=== PATIENT | female | born 1950 | race Caucasian/White ===

== ENCOUNTER 2022-03-04 16:30 | Outpatient (REF) | payer BC, MEDICARE, SELFPAY | END 2022-03-04 16:31 | disposition home or self-care (01) | LOC: HO.LNP 16:30 | PROVIDERS: Visit Provider Nurse Practitioner Family | DX: R39.15 Urgency of urination (principal); B96.1 Klebsiella pneumoniae [K. pneumoniae] as the cause of diseases classified elsewhere; Z16.11 Resistance to penicillins | CPT/HCPCS: 87086; 87088; 87186 ==

== ENCOUNTER 2022-12-26 09:00 | Inpatient (IN) | payer MEDICARE, SELFPAY ==
[2022-12-26] VITALS (7 sets, daily range): BP systolic 124–154; BP diastolic 63–84; PULSE 70–103; RESP 16–18; TEMP 36.3–36.8; O2SAT 93–100; BMI 26.4; BMI 25.9
--- NOTE | ~2022-12-26 | CT_ITS ---
EXAMINATION: CT ABDOMEN AND PELVIS WITH CONTRAST CLINICAL INFORMATION: Left lower quadrant pain COMPARISON: None available. TECHNIQUE: Multidetector volumetric images were obtained from the superior aspect of the liver through the pubic symphysis following administration 85 mL of Omnipaque 350 intravenous contrast. Sagittal and coronal reformatted images were obtained on the technologist's workstation. Oral contrast: Yes This CT examination was performed using dose optimization techniques as appropriate, variously including the following: *Automated exposure control *Adjustment of mA and/or kV according to patient size (this includes techniques or standardized protocols for targeted exams where dose is matched to indication/reason for exam; i.e. extremities or head) *Use of iterative reconstruction technique DLP: 417 mGy-cm FINDINGS: LUNG BASES: The visualized lung bases are unremarkable. LIVER, GALLBLADDER, AND BILIARY TREE: The liver is normal in size, shape, and attenuation. No focal hepatic lesion or biliary ductal dilatation is present. The gallbladder is unremarkable with no evidence of radiopaque gallstones, gallbladder wall thickening, or obvious pericholecystic inflammatory changes. PANCREAS: Unremarkable. SPLEEN: Unremarkable. ADRENAL GLANDS: Unremarkable. KIDNEYS AND URETERS: The kidneys are normal in size, shape, and attenuation. No hydronephrosis, hydroureter, or calculi seen. No perinephric stranding. BLADDER: There may be some reactive wall thickening along the left superior lateral bladder wall. No abnormal air collection or contrast or a soft tissue mass in the bladder is seen. GASTROINTESTINAL TRACT: There is diverticulosis of the colon. There is wall thickening of the sigmoid colon. There is stranding of the surrounding fat. There are small fluid collections along the left lateral wall of the sigmoid colon questionable for intramural abscesses, extraluminal abscesses or small contained perforation. Largest area measures 2 cm axial image 57 series 2. This abuts the left adnexa. No evidence of obstruction. No free air. The small and large bowel is otherwise normal. The appendix is not seen. ABDOMINAL WALL: No significant hernia is appreciated. LYMPH NODES: Normal. VASCULAR: Unremarkable. PELVIC VISCERA: Small amount of fluid in the endometrial canal. Likely inflammatory left pelvic mass related to sigmoid diverticular disease in the left adnexa. Normal-appearing right adnexa. OSSEOUS STRUCTURES: Scoliosis and degenerative changes of the spine. CT/CT abdomen pelvis w IV con IMPRESSION: Sigmoid diverticulitis. Small fluid collections along the left lateral sigmoid colon inseparable from the left adnexa. It is uncertain whether this represents intramural abscesses or small extraluminal abscesses or contained perforations. Largest area measures 2 cm. No evidence of obstruction or free air. Small amount of fluid in the endometrial cavity. This could be better assessed with pelvic ultrasound if clinically indicated/history of vaginal bleeding. Fleischner guidelines were followed.
--- NOTE | 2022-12-26 09:19 | ED_ITS ---
HPI - Abdominal Pain General Chief Complaint: Abdominal Pain Stated Complaint: abd pain Time Seen by Provider: 12/26/22 09:14 Source: patient Mode of arrival: ambulatory Limitations: no limitations History of Present Illness HPI narrative: This is 72 years old female presented to the emergency department with chief complaint of left lower quadrant abdominal pain for about 2 weeks, she visited the urgent care he was placed on amoxicillin, she is on day 3 of amoxicillin. He denies any fever any vomiting MD elicited complaint: abdominal pain Pertinent past history: diverticulitis Onset (ago): week(s) (2) Pain Consistency: constant Location: LLQ Severity: moderate Quality: cramping Radiation: none Exacerbating factors: nothing Relieving factors: nothing Related Data Home Medications Medication Instructions Recorded Confirmed estradiol 0.01% (0.1 mg/gram) 1 g vaginal 2XW 03/04/22 vaginal cream Previous Rx's Medication Instructions Recorded nitrofurantoin macrocrystal 100 mg 100 mg PO BID 5 days #10 caps 03/04/22 capsule Allergies Allergy/AdvReac Type Severity Reaction Status Date / Time Sulfa (Sulfonamide AdvReac Rash Verified 03/04/22 13:27 Antibiotics) Review of Systems Review of Systems Yes all other systems are reviewed and are negative Constitutional: Reports no additional constitutional complaints Gastrointestinal: Reports abdominal pain PMFSH Past Medical History PMFSH Narrative: Diverticulitis Social History Social History Alcohol intake: current Alcohol intake frequency: 0-2 drinks per day Alcohol type: wine Patient Tobacco Use Status: Former Tobacco user Smoked in Last 30 Days: No Use of substances other than those prescribed or required for medical reasons: No Advance Directives: No Advance Directives Information Provided: Yes Physical Exam ED Vital Signs: Vital Signs - 24 hr 12/26/22 09:12 12/26/22 11:26 Temperature 97.9 F Pulse Rate 96 102 H Respiratory Rate 18 18 Blood Pressure 154/79 H 139/81 Pulse Oximetry 100 99 Oxygen Delivery Method Room Air BMI result Body Mass Index 26.4 Const General: cooperative Nutritional Appearance: well nourished Orientation/consciousness: patient oriented x3 Limitations: no limitations HENMT Head: Yes normal to inspection Ears: hearing grossly normal bilaterally General nose exam: Normal external nose present Face and sinus: Yes normal facial exam Mouth: Normal oral and palatal mucosa present Eyes General: appearance normal, both eyes and all related structures EOM: EOMs intact bilaterally Neck Neck: Yes normal visual inspection Chest Chest palpation & inspection: normal inspection of the chest Resp Effort & Inspection: normal respiratory effort Cardio Jugular venous distension: no JVD Rate: regular rate Rhythm: regular rhythm GI Inspection: Yes normal to inspection Palpation (GI): Soft to palpation and Tenderness to palpation present (GI) (Left lower quadrant tenderness) in the LLQ Auscultation: normal bowel sounds Skin General skin exam: no rashes or lesions noted, elasticity normal and turgor normal Neuro General: patient oriented x3 Course Reevaluation(s) Reevaluation #1: CT reviewed question abscess I discussed the case with Dr. Guevara he will see the patient in the emergency department Time: 11:15 Reevaluation #2: seen by Dr Guevara Time: 11:26 Medical Decision Making Medical Decision Making [facility] Narrative: Patient presented with abdominal pain left lower quadrant he is on day 3 of antibiotic for presumed diverticulitis, this point will get a CT scan of the abdomen and pelvis and reassess Differential Diagnosis Differential Diagnoses: The differential diagnosis associated with the presentation includes Perforated diverticulitis/abscess/uncomplicated diverticulitis Admission/Observation Consideration of admission/observation: Escalation of care including admission/observation considered Consult Healthcare Provider Management of the patient was discussed with: Canvassing Manager Ismael Lab Data [facility] Lab Attestation statement: I reviewed the patient's lab results. 12/26/22 09:34 12/26/22 09:34 Labs: Lab Results 12/26/22 12/26/22 Range/Units 09:34 09:34 WBC 12.3 H (4.8-10.8) X10*3/uL RBC 3.64 L (4.20-5.50) X10*6/uL Hgb 12.1 (12.0-16.0) g/dl Hct 35.4 L (37.0-47.0) % MCV 97.3 (80.0-98.0) fL MCH 33.2 H (27.0-33.0) pg MCHC 34.2 (31.0-35.0) g/dl RDW 12.6 (11.0-16.0) % Plt Count 256 (160-400) X10*3/uL MPV 8.9 L (9.4-12.3) fL Immature Gran % (Auto) 0.8 H (0.0-0.4) % Neut % (Auto) 82.8 H (45-73) % Lymph % (Auto) 7.6 L (20-40) % [place] % (Auto) 8.0 (2-11) % Eos % (Auto) 0.6 (0-4) % Baso % (Auto) 0.2 (0-2) % Lymph # (Auto) 0.9 L (1.2-4.9) X10*3/uL [place] # (Auto) 1.0 (0.1-1.2) X10*3/uL Eos # (Auto) 0.1 (0.0-0.4) X10*3/uL Baso # (Auto) 0.0 (0.0-0.2) X10*3/uL Abs Immat Gran (auto) 0.10 H (0.00-0.03) X10*3/uL Absolute Neuts (auto) 10.2 H (2.0-8.3) x10*3/uL Absolute Nucleated RBC 0.000 (0.0-0.012) X10*3/uL Nucleated RBC % (auto) 0.0 (0.0-0.2) /100WBC Sodium 133 L (135-145) mmol/L Potassium 4.5 (3.3-5.1) mmol/L Chloride 102 (96-108) mmol/L Carbon Dioxide 25 (22-29) mmol/L Anion Gap 11 L (12-20) BUN 6 L (9-16) mg/dL Creatinine 0.63 (0.5-1.4) mg/dL Estim Creat Clear Calc 69.9 Estimated GFR > 60 Random Glucose 116 H (60-115) mg/dL Calcium 9.7 (8.4-10.2) mg/dL Total Bilirubin 1.3 H (0.0-1.0) mg/dL AST 54 H (5-31) U/L ALT 49 H (0-31) U/L Alkaline Phosphatase 156 H (39-117) U/L Total Protein 7.1 (6.5-8.0) g/dL Albumin 3.9 (3.5-5.0) g/dL Lipase 25 (8-78) U/L Independent Interpretation I performed an independent interpretation of an: CT Scan Interpretation: I reviewed personally the CT agree with the radiology reading Radiology Impression Discussion of test interpretation with radiology: I have reviewed the radiologist's reading. Independent Historian Clinical information obtained from an independent historian. History obtained from or confirmed by: Other (Daughter) Prescription Management I considered prescription management with: Pain Medication Medications Administered Generic Name Dose Route Start Last Admin Trade Name Freq PRN Reason Stop Dose Admin Piperacillin Sod/Tazobactam 50 mls @ 100 mls/hr 12/26/22 11:12 12/26/22 11:28 Sod 3.375 gm/ Sodium Chloride IV 12/26/22 11:41 100 mls/hr ONCE ONE Administration Discontinued Medications Generic Name Dose Route Start Last Admin Trade Name Freq PRN Reason Stop Dose Admin Iohexol 85 ml 12/26/22 10:31 12/26/22 10:32 Iohexol 350 Mg/Ml 75 Ml Infus..Btl IV 12/26/22 10:32 85 ml ONCE ONE Administration Discharge Plan Discharge Clinical Impression: Diverticulitis of large intestine with complication Patient Disposition: Admitted As Inpatient
[2022-12-26 09:39] LABS: MANUAL DIFF FLAG NO
[2022-12-26 09:40] LABS: Basophils Percent Auto 0.2 % (0-2); Eosinophils Absolute Auto 0.1 X10*3/uL (0.0-0.4); Eosinophils Percent Auto 0.6 % (0-4); Hematocrit 35.4 % (37.0-47.0); Hemoglobin 12.1 g/dl (12.0-16.0); Imm Gran Pct Auto 0.8 % (0.0-0.4); Lymphocytes Absolute Auto 0.9 X10*3/uL (1.2-4.9); Lymphocytes Percent Auto 7.6 % (20-40); Mean Corpuscular HGB Conc 34.2 g/dl (31.0-35.0); Mean Corpuscular Hemoglobin 33.2 pg (27.0-33.0); Mean Corpuscular Volume 97.3 fL (80.0-98.0); Mean Platelet Volume 8.9 fL (9.4-12.3); Neutrophils Absolute Auto 10.2 x10*3/uL (2.0-8.3); Neutrophils Percent Auto 82.8 % (45-73); Platelet Count 256 X10*3/uL (160-400); Red Blood Count 3.64 X10*6/uL (4.20-5.50); Red Cell Distribution Width 12.6 % (11.0-16.0); White Blood Count 12.3 X10*3/uL (4.8-10.8)
[2022-12-26 09:58] LABS: Alanine Aminotransferase 49 U/L (0-31); Albumin Level 3.9 g/dL (3.5-5.0); Alkaline Phosphatase 156 U/L (39-117); Anion Gap 11 (12-20); Aspartate Amino Transferase 54 U/L (5-31); Bilirubin Total 1.3 mg/dL (0.0-1.0); Blood Urea Nitrogen 6 mg/dL (9-16); Calcium 9.7 mg/dL (8.4-10.2); Carbon Dioxide 25 mmol/L (22-29); Chloride 102 mmol/L (96-108); Creatinine Clr Calc Pharmacy 69.9; Estimated Glomerular Filt Rate > 60; Glucose Random 116 mg/dL (60-115); Lipase 25 U/L (8-78); Potassium 4.5 mmol/L (3.3-5.1); Sodium 133 mmol/L (135-145); Total Protein 7.1 g/dL (6.5-8.0)
[2022-12-26] MEDS: iohexoL 350 MG/ML 75 ML INFUS..BTL 85 ML IV (10:32)
--- NOTE | 2022-12-26 11:19 | PC.NURSE ---
per MD Sheldon - no need for blood cultures to be drawn prior to ABX administration
[2022-12-26] MEDS: Piperacillin Sodium/Tazobactam 3.375 GM in 0.9 % Sodium Chloride 50 ML IV ×3 (11:28→22:47)
--- NOTE | 2022-12-26 11:34 | PM.HPGS ---
History of Present Illness History of Present Illness Date of Service: 12/30/22 Chief complaint: Acute diverticulitis Narrative: Serenity Hastings is a 72 year old female here in the ED for abdominal pain. She says she went to the urgent care 3 days ago for abdominal pain, mostly left-sided. She says she is aware that she has diverticulosis from previous colonoscopies. She therefore told the urgent care that her pain was secondary to her lower disease. She was started on amoxicillin. She says that she did not feel that she had improved significantly so she decided to come to the ER this morning. She says that the pain not severe but she felt that this should have been better by now after being on oral antibiotics. She denies any fever or chills. She has good bowel movements. Has passage of flatus She denies any nausea or vomiting She says that she has never been admitted for diverticulitis in the past. Her daughter says that she drinks alcoholl every day. The patient says that she has not had any alcohol intake for 3 days. Review of Systems Constitutional: Constitutional: Denies chills and Denies fever(s) Cardiovascular: Cardiovascular: Denies chest pain, Denies dyspnea and Denies dyspnea on exertion Respiratory: Respiratory: Denies cough, Denies dyspnea and Denies dyspnea on exertion Gastrointestinal: Gastrointestinal: Denies hematochezia and Denies change in bowel habits Genitourinary: Genitourinary: Denies hematuria Musculoskeletal: Musculoskeletal: Denies back pain and Denies limited range of motion Neurologic: Denies focal weakness and Denies convulsions Psychiatric: Psychiatric: Denies depression and Denies mood swings PMFSH Past Medical History Medical History Daily consumption of alcohol Surgical History Surgical History (Updated 12/26/22 @ 13:40 by Heather Escobar NP) H/O neck surgery History of appendectomy Social History Social History (Updated 12/26/22 @ 13:40 by Heather Escobar NP) Household Members: Family Housing: House Do you presently have visiting nurse or other home services: No Alcohol intake: current Alcohol intake frequency: 3 or more drinks per day Alcohol type: wine Patient Tobacco Use Status: Never used Tobacco Smoked in Last 30 Days: No Use of substances other than those prescribed or required for medical reasons: No Currently Displaying Signs/Symptoms of Drug Intoxication Withdrawal: No Have you been hit, kicked, punched, or otherwise hurt by someone within the past year? If so, by whom?: No Do you feel safe in your current relationship?: Yes Is there a partner from a previous relationship who is making you feel unsafe now?: No Are you made to feel afraid or neglected: No Advance Directives: No Advance Directives Information Provided: Yes Do you have thoughts of harming others: None Do you have a plan to hurt others: No Plan Recently lost weight without trying: Yes How much weight loss: 2-13 pounds Eating poorly because of decreased appetite: Yes Nutrition screen score: 4 Nutrition Risks: No Nutritional Risk Patient : No : No Poor oral hygiene: No service: No Meds Allergies Allergy/AdvReac Type Severity Reaction Status Date / Time Sulfa (Sulfonamide AdvReac Rash Verified 03/04/22 13:27 Antibiotics) Active Medications: Current Medications Piperacillin Sod/Tazobactam (Sod 3.375 gm/ Sodium Chloride) 50 mls @ 100 mls/hr IV ONCE ONE Stop: 12/26/22 11:41 Last Admin: 12/26/22 11:28 Dose: 100 mls/hr Home Medications Medication Instructions Recorded Confirmed Last Taken Type estradiol 0.01% (0.1 mg/gram) 1 g vaginal 2XW 03/04/22 12/26/22 12/25/22 History vaginal cream amoxicillin 875 mg-potassium 1 tab PO Q12H 12/26/22 12/26/22 12/25/22 22:00 History clavulanate 125 mg tablet calcium carbonate 500 mg calcium 500 mg PO BID 12/26/22 12/26/22 Unknown History (1,250 mg) tablet ibuprofen 400 mg tablet 400 mg PO Q8H PRN Pain 12/26/22 12/26/22 Unknown History vitamins A,C,[id number]-wyje-wvvznv 2,148 1 tab PO BID 12/26/22 12/26/22 Unknown History mcg-113 mg-45 mg-17.4 mg tablet (PreserVision AREDS) Physical Exam Vital Signs: Vital Signs: Last Vital Signs Temp 97.9 F 12/26/22 09:12 Pulse 102 H 12/26/22 11:26 Resp 18 12/26/22 11:26 BP 139/81 12/26/22 11:26 Pulse Ox 99 12/26/22 11:26 O2 Del Method Room Air 07/22/23 09:12 BMI result Body Mass Index 26.4 Const: General: comfortable and no acute distress Orientation/consciousness: patient oriented x3 Neck: Neck: Yes no lymphadenopathy Resp: Auscultation: clear to auscultation bilaterally Cardio: Rhythm: regular rhythm GI: Other: mild tenderness on the left lower quadrant with no rebound or guarding no palpable mass Palpation (GI): Soft to palpation, Tenderness to palpation present (GI) and no guarding Neuro: General: patient oriented x3 Results Results Labs: Short CBC 12/26/22 Range/Units 09:34 WBC 12.3 H (4.8-10.8) X10*3/uL Hgb 12.1 (12.0-16.0) g/dl Hct 35.4 L (37.0-47.0) % Plt Count 256 (160-400) X10*3/uL BMP 12/26/22 09:34 Sodium 133 L Potassium 4.5 Chloride 102 Carbon Dioxide 25 BUN 6 L Creatinine 0.63 Calcium 9.7 Liver Function 12/26/22 Range/Units 09:34 Total Bilirubin 1.3 H (0.0-1.0) mg/dL AST 54 H (5-31) U/L ALT 49 H (0-31) U/L Alkaline Phosphatase 156 H (39-117) U/L Albumin 3.9 (3.5-5.0) g/dL Laboratory Results WBC 12.3 X10*3/uL (4.8-10.8) H 12/26/22 09:34 RBC 3.64 X10*6/uL (4.20-5.50) L 12/26/22 09:34 Hgb 12.1 g/dl (12.0-16.0) 12/26/22 09:34 Hct 35.4 % (37.0-47.0) L 12/26/22 09:34 MCV 97.3 fL (80.0-98.0) 12/26/22 09:34 MCH 33.2 pg (27.0-33.0) H 12/26/22 09:34 MCHC 34.2 g/dl (31.0-35.0) 12/26/22 09:34 RDW 12.6 % (11.0-16.0) 12/26/22 09:34 Plt Count 256 X10*3/uL (160-400) 12/26/22 09:34 MPV 8.9 fL (9.4-12.3) L 12/26/22 09:34 Immature Gran % (Auto) 0.8 % (0.0-0.4) H 12/26/22 09:34 Neut % (Auto) 82.8 % (45-73) H 12/26/22 09:34 Lymph % (Auto) 7.6 % (20-40) L 12/26/22 09:34 [place] % (Auto) 8.0 % (2-11) 12/26/22 09:34 Eos % (Auto) 0.6 % (0-4) 12/26/22 09:34 Baso % (Auto) 0.2 % (0-2) 12/26/22 09:34 Lymph # (Auto) 0.9 X10*3/uL (1.2-4.9) L 12/26/22 09:34 [place] # (Auto) 1.0 X10*3/uL (0.1-1.2) 12/26/22 09:34 Eos # (Auto) 0.1 X10*3/uL (0.0-0.4) 12/26/22 09:34 Baso # (Auto) 0.0 X10*3/uL (0.0-0.2) 12/26/22 09:34 Abs Immat Gran (auto) 0.10 X10*3/uL (0.00-0.03) H 12/26/22 09:34 Absolute Neuts (auto) 10.2 x10*3/uL (2.0-8.3) H 12/26/22 09:34 Absolute Nucleated RBC 0.000 X10*3/uL (0.0-0.012) 12/26/22 09:34 Nucleated RBC % (auto) 0.0 /100WBC (0.0-0.2) 12/26/22 09:34 Sodium 133 mmol/L (135-145) L 12/26/22 09:34 Potassium 4.5 mmol/L (3.3-5.1) 12/26/22 09:34 Chloride 102 mmol/L (96-108) 12/26/22 09:34 Carbon Dioxide 25 mmol/L (22-29) 12/26/22 09:34 Anion Gap 11 (12-20) L 12/26/22 09:34 BUN 6 mg/dL (9-16) L 12/26/22 09:34 Creatinine 0.63 mg/dL (0.5-1.4) 12/26/22 09:34 Estim Creat Clear Calc 69.9 12/26/22 09:34 Estimated GFR > 60 12/26/22 09:34 Random Glucose 116 mg/dL (60-115) H 12/26/22 09:34 Calcium 9.7 mg/dL (8.4-10.2) 12/26/22 09:34 Total Bilirubin 1.3 mg/dL (0.0-1.0) H 12/26/22 09:34 AST 54 U/L (5-31) H 12/26/22 09:34 ALT 49 U/L (0-31) H 12/26/22 09:34 Alkaline Phosphatase 156 U/L (39-117) H 12/26/22 09:34 Total Protein 7.1 g/dL (6.5-8.0) 12/26/22 09:34 Albumin 3.9 g/dL (3.5-5.0) 12/26/22 09:34 Lipase 25 U/L (8-78) 12/26/22 09:34 Impressions Abdomen/Pelvis CT 12/26/22 10:32 IMPRESSION: Sigmoid diverticulitis. Small fluid collections along the left lateral sigmoid colon inseparable from the left adnexa. It is uncertain whether this represents intramural abscesses or small extraluminal abscesses or contained perforations. Largest area measures 2 cm. No evidence of obstruction or free air. Small amount of fluid in the endometrial cavity. This could be better assessed with pelvic ultrasound if clinically indicated/history of vaginal bleeding. Fleischner guidelines were followed. Assessment and Plan (1) Diverticulitis of large intestine with complication: Status: Acute She has left lower quadrant pain and tenderness. I have reviewed her CAT scan and this shows changes in the sigmoid consistent with acute diverticulitis. There is suggestion of small intramural or extraluminal abscesses. There is no evidence of any free air. She has a very benign exam. She has had no fever. She looks well overall although does have some anxiety. She will be admitted for IV antibiotics. She does not appear that she will benefit from CT drainage at this time. I did explain to her that if she has clinical worsening, may benefit from sigmoid resection and a possible stoma. This seems to be unlikely at this time. I explained to her and her daughter what to expect for now. This seemed to understand the plan Her daughter is concerned about daily alcohol intake with wine, and she anticipates anxiety. I will consult the hospitalist service although at this time it does not appear that she has withdrawal symptoms. Time Spent With Patient Time: Total time managing care of this patient today ____ minutes. Quality Stroke Does the patient have a stroke diagnosis?: No VTE Prior VTE?: No VTE Risk Level:: Medical - moderate - high VTE Device Contraindication: N/A - Device Ordered VTE Drug Contraindication: N/A - Med Ordered Procedures Date of Service Date of Service: 12/30/22
[2022-12-26 11:51] LABS: Appearance Urine Clear; Color Urine Yellow; Glucose Urine UA Negative (Negative); Leukocyte Esterase Urine Negative (Negative); Nitrite Urine Negative (Negative); Specific Gravity - Urine >= 1.030 (1.005-1.025); Urine Blood Negative (Negative); Urine Ketones Negative (Negative); Urine Protein Negative (Neg-Trace)
--- OUTSIDE RECORDS SUMMARY | 2022-12-26 12:03 | XMS_ITS | Continuity of Care Document ---
Author Name Unknown Organization [facility] Address [address], [address] [place] [address]- Care Team Providers Care Angle Bender Name Role Phone Ashley Boone MD Primary Care Physician Encounter 09/02/22 - 09/09/22 [facility] [address], [address] [place] [address]- Attending Physician: sAhley Boone MD Admitting Physician: Ashley Boone MD Referring Physician: Ashley Boone MD Allergies, Adverse Reactions, Alerts Substance Reaction Severity Status sulfADIAZINE rash Active sulfa drugs Active Immunizations Given and Recorded Vaccine Date Status Refusal Reason tetanus/diphtheria/pertussis, acel(Tdap) 08/28/22 Given tetanus/diphtheria/pertussis, acel(Tdap) 1 10/22/11 Given influenza virus vaccine, inactivated 03/31/22 Salvador rded influenza virus vaccine, inactivated 03/24/21 Give n influenza virus vaccine, inactivated 03/13/19 Salvador rded influenza virus vaccine, inactivated 06/10/18 Give n influenza virus vaccine, inactivated 2 04/14/17 Gi robert influenza virus vaccine, inactivated 04/06/16 Salvador rded influenza virus vaccine, inactivated 3 07/06/13 Gi robert SARS-CoV-2 (COVID-19) mRNA-1273 vaccine 06/03/21 R ecorded SARS-CoV-2 (COVID-19) mRNA-1273 vaccine 09/28/20 R ecorded SARS-CoV-2 (COVID-19) mRNA-1273 vaccine 08/31/20 R ecorded Influenza Virus Vaccine (oldterm) 03/13/20 Recorde d pneumococcal 23-valent vaccine 08/08/18 Given pneumococcal 13-valent vaccine 07/20/16 Given Influenza Vaccine (oldterm) 4 03/05/15 Recorded Fluzone (oldterm) 2/5/15 Given FluLaval (oldterm) 5 06/03/12 Given Zostavax (oldterm) 07/06/11 Recorded Tetanus Toxoid Vaccine (oldterm) 06/28/00 Given 1Admin Note: VIS...06/30/2011 2Result Comment: [04/14/2017] [id number] 3Result Comment: [07/06/2013] Ordered by Dr. Ashley Boone [facility] 5Admin Note: VIS given dated 12/07/11 Medications Caltrate 600 + D oral tablet 1 tablet, By Mouth, 2 times a day, # 60 tablet, 0 Refills, Maintenance, 08/14/19 11:16:00 EDT, Tablet Start Date: 08/14/19 Status: Ordered estradiol 0.1 mg/g vaginal cream 0 Refills, Maintenance, 08/25/21 14:05:00 EDT, Partial fill upon patient request if the prescription is for a schedule II opioid drug. 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 Confirmed Active Hypertension Confirmed Active Neck pain Confirmed Active Osteopenia 2 Confirmed 08/19/18 Active Skin lesion Confirmed Active 1possible fatty liver, lab w/u prevously negative 2Left hip Results Radiology Reports * Exam Date Time Procedure Performing Provider Status 09/02/22 10:49 AM Dexa Bone Density (Axial) Joseph Mckeon; Auth (Verified) Notes: (Dexa Bone Density (Axial)) Reason For Exam: Osteopenia;Screening for Osteoporosis RESULT: DEXA BONE DENSITY (AXIAL) Bone Density Report Name: JALYN SHIELDS Age: 72 Sex: Female Ethnicity: White Date of : 1950 Indication: POSTMENOPAUSAL. Referring Provider: ASHLEY BOONE Study: Bone densitometry was performed. Exam Date: September 02, 2022 Accession number: [id number] Bone Density: Region BMD T-score Z-score Classification AP Spine(L1, L2, L3) 1.084 0.6 2.7 Normal Femoral Neck (Left) 0.700 -1.3 0.5 Osteopenia Total Hip (Left) 0.784 -1.3 0.3 Osteopenia Total Forearm (Left) 0.590 0.2 2.3 1/3 Forearm (Left) 0.675 -0.3 1.9 Normal UD Forearm (Left) 0.444 0.0 1.6 World Health Organization criteria for BMD impression classify patients as: Normal (T-score at or above -1.0), Osteopenia (T-score between -1.0 and -2.5), or Osteoporosis (T-score at or below -2.5). 10-year Fracture Risk(1): Major Osteoporotic Fracture 19% Hip Fracture 5.4% Reported Risk Factors: [place] (), Neck BMD=0.700, BMI=26.8, parental fracture, alcohol use (1) FRAX(R) Version 3.00. Fracture probability calculated for an untreated patient. Fracture probability may be lower if the patient has received treatment. Previous Exams: Region Exam Age BMD T-score BMD Change BMD Change Date g/cm2 vs Baseline vs Previous AP Spine(L1, L2, L3) 09/02/2022 72 1.084 0.6 4.4%* 4.2%* 08/29/2020 70 1.041 0.2 0.2% 0.2% 08/09/2014 64 1.039 0.2 0.1% 0.1% 11/14/2009 59 1.038 0.2 Total Hip(Left) 09/02/2022 72 0.784 -1.3 -14.6%* -6.3%* 08/29/2020 70 0.837 -0.9 -8.9%* -9.8%* 08/09/2014 64 0.927 -0.1 1.0% 1.0% 11/14/2009 59 0.918 -0.2 Femoral Neck(Left) 09/02/2022 72 0.700 -1.3 -5.3%* 0.4% 08/29/2020 70 0.697 -1.4 -5.7%* -7.2%* 08/09/2014 64 0.752 -0.9 1.6% 1.6% 11/14/2009 59 0.739 -1.0 1/3 Forearm(Left) 09/02/2022 72 0.675 -0.3 5.4%* 5.4%* 08/29/2020 70 0.641 -0.9 *Denotes significance at 95% confidence level, LSC for AP Spine = 0.022 g/cm2, LSC for Total Hip = 0.027 g/cm2 Clinical Information Provided by Patient: Parent has had a hip fracture Has 3 or more alcoholic drinks per day Has used the following medications: Vitamin D, Calcium Patient maximum height was 61.5 Menopause Age: 49 Onset of menses at age 15 Number of children 1 Impression: The patient has osteopenia as determined by WHO criteria. Reported by: Narenrda Blackburn M.D. on 09/03/2022 3:58:00 PM. Dictated By: Narendra Blackburn MD Dictated Date/Time: 09/03/22 3:59 pm Reviewed By: Narendra Blackburn MD Signed By: Narendra Blackburn MD Signed Date/Time: 09/03/22 3:59 pm Transcribed By: ELIAS Transcribed Date/Time: 09/03/22 3:59 pm Social History Social History Type Response Smoking Status Former smoker; Type: Cigarettes; Started at age: 21; Stopped at age: 34; entered on: 07/12/14 Sex DXA Skeletal system.axial Views for bone density * [facility]SPowerscribe , CIS S: TRANSCRIBE BHSPowerscribe , CIS S: TRANSCRIBE, VERIFY Narendra Blackburn MD: VERIFY, VERIFY Narendra Blackburn MD: VERIFY Event Display: Result: Authored Date: [id number] Bone Density Report Name: JALYN SHIELDS Age: 72 Sex: Female Ethnicity: White Date of : 1950 Indication: POSTMENOPAUSAL. Referring Provider: ASHLEY BOONE Study: Bone densitometry was performed. Exam Date: September 02, 2022 Accession number: [id number] Bone Density: Region BMD T-score Z-score Classification AP Spine(L1, L2, L3) 1.084 0.6 2.7 Normal Femoral Neck (Left) 0.700 -1.3 0.5 Osteopenia Total Hip (Left) 0.784 -1.3 0.3 Osteopenia Total Forearm (Left) 0.590 0.2 2.3 1/3 Forearm (Left) 0.675 -0.3 1.9 Normal UD Forearm (Left) 0.444 0.0 1.6 World Health Organization criteria for BMD impression classify patients as: Normal (T-score at or above -1.0), Osteopenia (T-score between -1.0 and -2.5), or Osteoporosis (T-score at or below -2.5). 10-year Fracture Risk(1): Major Osteoporotic Fracture 19% Hip Fracture 5.4% Reported Risk Factors: [place] (), Neck BMD=0.700, BMI=26.8, parental fracture, alcohol use (1) FRAX(R) Version 3.00. Fracture probability calculated for an untreated patient. Fracture probability may be lower if the patient has received treatment. Previous Exams: Region Exam Age BMD T-score BMD Change BMD Change Date g/cm2 vs Baseline vs Previous AP Spine(L1, L2, L3) 09/02/2022 72 1.084 0.6 4.4%* 4.2%* 08/29/2020 70 1.041 0.2 0.2% 0.2% 08/09/2014 64 1.039 0.2 0.1% 0.1% 11/14/2009 59 1.038 0.2 Total Hip(Left) 09/02/2022 72 0.784 -1.3 -14.6%* -6.3%* 08/29/2020 70 0.837 -0.9 -8.9%* -9.8%* 08/09/2014 64 0.927 -0.1 1.0% 1.0% 11/14/2009 59 0.918 -0.2 Femoral Neck(Left) 09/02/2022 72 0.700 -1.3 -5.3%* 0.4% 08/29/2020 70 0.697 -1.4 -5.7%* -7.2%* 08/09/2014 64 0.752 -0.9 1.6% 1.6% 11/14/2009 59 0.739 -1.0 06/09 Forearm(Left) 09/02/2022 72 0.675 -0.3 5.4%* 5.4%* 08/29/2020 70 0.641 -0.9 *Denotes significance at 95% confidence level, LSC for AP Spine = 0.022 g/cm2, LSC for Total Hip = 0.027 g/cm2 Clinical Information Provided by Patient: Parent has had a hip fracture Has 3 or more alcoholic drinks per day Has used the following medications: Vitamin D, Calcium Patient maximum height was 61.5 Menopause Age: 49 Onset of menses at age 15 Number of children 1 Impression: The patient has osteopenia as determined by WHO criteria. Reported by: Narendra Blackburn M.D. on 09/03/2022 3:58:00 PM. Dictated By: Narendra Blackburn MD Dictated Date/Time: 09/03/22 3:59 pm Reviewed By: Narnedra Blackburn MD Signed By: Narendra Blackburn MD Signed Date/Time: 09/03/22 3:59 pm Transcribed By: ELIAS Transcribed Date/Time: 09/03/22 3:59 pm Patient Care team information Care Team Personnel Name: Ashley Boone MD Position: S Primary Care Physician Member Role: PCP Address: Address: [address] [place] [address] [place] [address]- Name: Solo ZALDIVAR, Shelby Position: S RN Member Role: Primary Care Nurse Care Team Related Persons Name: ALINA SHIELDS Address: home [address] [place] [id number] UM Name: KANU CHO
--- OUTSIDE RECORDS SUMMARY | 2022-12-26 12:03 | XMS_ITS | Continuity of Care Document ---
Author Name Unknown Organization [facility] Address [address] [place] [address] [address] [place] [address]- Care Team Providers Care Hygiene Assistant Name Role Phone Ashley Akins MD Primary Care Physician [phone] Encounter [facility] Date(s): 08/30/20 - 09/06/20 [facility] [address] [place] [address]- Attending Physician: Dandre Downey MD Referring Physician: Ashley Akins MD Allergies, Adverse Reactions, Alerts Substance Reaction Severity Status sulfADIAZINE rash Active sulfa drugs Active Immunizations Given and Recorded Vaccine Date Status Refusal Reason Influenza Virus Vaccine (oldterm) 03/13/20 Recorde d influenza virus vaccine, inactivated 03/13/19 Salvador rded influenza virus vaccine, inactivated 06/10/18 Give n influenza virus vaccine, inactivated 1 04/14/17 Gi robert influenza virus vaccine, inactivated 04/06/16 Salvador rded influenza virus vaccine, inactivated 2 07/06/13 Gi robert pneumococcal 23-valent vaccine 08/08/18 Given pneumococcal 13-valent vaccine 07/20/16 Given Influenza Vaccine (oldterm) 3 03/05/15 Recorded Fluzone (oldterm) 07/12/14 Given FluLaval (oldterm) 4 06/03/12 Given tetanus/diphtheria/pertussis, acel(Tdap) 5 10/22/11 Given Zostavax (oldterm) 07/06/11 Recorded Tetanus Toxoid Vaccine (oldterm) 06/28/00 Given 1Result Comment: [04/14/2017] [id number] 2Result Comment: [07/06/2013] Ordered by Dr. Ashley Akins [facility] 4Admin Note: VIS given dated 12/07/11 5Admin Note: VIS...06/30/2011 Medications No Known Medications Problem List Condition Effective Dates Status Health Status Inform ant Macular degeneration(Confirmed) Active Vaginal high risk HPV DNA te st positive(Confirmed) Active Neck pain(Confirmed) Active Osteopenia(Confirmed) 1 08/19/18 Active Lab test positive for detect ion of COVID-19 virus(Confirmed) 2 Active 1Left hip 2November 2020 Vital Signs Most recent to oldest [Reference Range]: 1 Height 154.94 cm (08/30/20 3:04 PM) Temperature [96.8-100.4 DegF] 96.2 DegF *L* (08/30/20 3:04 PM) Social History Social History Type Response Smoking Status Former smoker; Type: Cigarettes; Started at age: 21; Stopped at age: 34; entered on: 07/12/14 Sex
--- OUTSIDE RECORDS SUMMARY | 2022-12-26 12:03 | XMS_ITS | Continuity of Care Document ---
Author Name Unknown Organization [facility] Address [address], [address] [place] [address]- Care Team Providers Care Family Physician Name Role Phone Ashley Akins MD Primary Care Physician [phone] Encounter 02/17/22 - 02/24/22 [facility] [address], [address] [place] [address]- Attending Physician: Ashley Akins MD Admitting Physician: Ashley Akins MD Referring Physician: Ashley Akins MD Allergies, Adverse Reactions, Alerts Substance Reaction Severity Status sulfADIAZINE rash Active sulfa drugs Active Immunizations Given and Recorded Vaccine Date Status Refusal Reason SARS-CoV-2 (COVID-19) mRNA-1273 vaccine 06/03/21 R ecorded SARS-CoV-2 (COVID-19) mRNA-1273 vaccine 09/28/20 R ecorded SARS-CoV-2 (COVID-19) mRNA-1273 vaccine 08/31/20 R ecorded influenza virus vaccine, inactivated 03/24/21 Give n influenza virus vaccine, inactivated 03/13/19 Salvador rded influenza virus vaccine, inactivated 06/10/18 Give n influenza virus vaccine, inactivated 1 04/14/17 Gi robert influenza virus vaccine, inactivated 04/06/16 Salvador rded influenza virus vaccine, inactivated 2 07/06/13 Gi robert Influenza Virus Vaccine (oldterm) 03/13/20 Recorde d pneumococcal 23-valent vaccine 08/08/18 Given pneumococcal 13-valent vaccine 07/20/16 Given Influenza Vaccine (oldterm) 3 03/05/15 Recorded Fluzone (oldterm) 07/12/14 Given FluLaval (oldterm) 4 06/03/12 Given tetanus/diphtheria/pertussis, acel(Tdap) 5 10/22/11 Given Zostavax (oldterm) 07/06/11 Recorded Tetanus Toxoid Vaccine (oldterm) 06/28/00 Given 1Result Comment: [04/14/2017] [id number] 2Result Comment: [07/06/2013] Ordered by Dr. Ashley Akins 3[facility] 4Admin Note: VIS given dated 12/07/11 5Admin Note: VIS...06/30/2011 Medications Caltrate 600 + D oral tablet [...] Date: 08/14/19 Status: Ordered Problem List Condition Effective Dates Status Health Status Inform ant Macular degeneration(Confirmed) Active History of recurrent UTI (ur inary tract infection)(Confirmed) Active Vaginal high risk HPV DNA te st positive(Confirmed) Active Neck pain(Confirmed) Active Osteopenia(Confirmed) 1 08/19/18 Active Lab test positive for detect ion of COVID-19 virus(Confirmed) 2 Active Skin lesion(Confirmed) Active 1Left hip 2November 2020 Social History Social History Type Response Smoking Status Former smoker; Type: Cigarettes; Started at age: 21; Stopped at age: 34; entered on: 07/12/14 Sex Care Team Personnel Name: Ashley Akins MD Address: [address] [place] [address] [address]
--- OUTSIDE RECORDS SUMMARY | 2022-12-26 12:03 | XMS_ITS | Continuity of Care Document ---
Author Name Unknown Organization [facility] ter Address [address] [place] [address]- Care Team Providers Care Home Health Aide Name Role Phone Ashley Akins MD Primary Care Physician Encounter [facility] Date(s): 01/19/22 - 03/18/[address] [address] Attending Physician: Ashley Akins MD Admitting Physician: [...] Vaccine (oldterm) 06/28/00 Given 1Result Comment: [04/14/2017] 70479-758-26 2Result Comment: [07/06/2013] Ordered by Dr. 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
--- OUTSIDE RECORDS SUMMARY | 2022-12-26 12:03 | XMS_ITS | Continuity of Care Document ---
Author Name Unknown Organization [facility] Address [address] [place] [address] [address] [place] [address]- Care Team Providers Care Beater Engineer Name Role Phone Ashley Akins MD Primary Care Physician [phone] Encounter [facility] Date(s): 08/30/20 - 09/29/20 [facility] [address] [place] [address]- Attending Physician: Admtr, [id number] Admitting Physician: Admtr, [id number] Referring Physician: Admtr, [id number] Allergies, Adverse Reactions, Alerts Substance Reaction Severity [...] Vaccine (oldterm) 06/28/00 Given 1Result Comment: [04/14/2017] 54807-345-09 2Result Comment: [07/06/2013] Ordered by Dr. Ashley Akins 3[facility] 4Admin Note: VIS given dated 12/07/11 5Admin Note: VIS...06/30/2011 Problem List Condition Effective Dates Status Health Status Inform ant Macular degeneration(Confirmed) Active Vaginal high risk HPV DNA te st positive(Confirmed) Active Neck pain(Confirmed) Active Osteopenia(Confirmed) 1 08/19/18 Active Lab test positive for detect ion of COVID-19 virus(Confirmed) 2 Active 1Left hip 2November 2019 Social History Social History Type Response Smoking Status Former smoker; Type: Cigarettes; Started at age: 21; Stopped at age: 34; entered on: 07/12/14 Sex
--- OUTSIDE RECORDS SUMMARY | 2022-12-26 12:03 | XMS_ITS | Continuity of Care Document ---
Author Name Unknown Organization [facility] Address [address] [facility] [place] [address]- Care Team Providers Care Electrical Power Engineer Name Role Phone Ashley Akins MD Primary Care Physician Encounter 01/08/20 - 01/15/20 [facility] [address], [facility] [address] [place] [address]- [phone] Attending Physician: Ashley Akins MD Admitting Physician: Ashley Akins MD Referring Physician: Ashley Akins MD Allergies, Adverse Reactions, Alerts Substance Reaction Severity Status sulfADIAZINE rash Active sulfa drugs Active Immunizations Given and Recorded Vaccine Date Status Refusal Reason influenza virus vaccine, inactivated 03/13/19 Salvador rded [...] Vaccine (oldterm) 06/28/00 Given 1Result Comment: [04/14/2017] 34656-585-47 2Result Comment: [07/06/2013] Ordered by Dr. Ashley Akins 3[facility] 4Admin Note: VIS given dated 12/07/11 5Admin Note: VIS...06/30/2011 Problem List Condition Effective Dates Status Health Status Inform ant Macular degeneration(Confirmed) Active Vaginal high risk HPV DNA te st positive(Confirmed) Active Neck pain(Confirmed) Active Osteopenia(Confirmed) 1 08/19/18 Active 1Left hip Social History Social History Type Response Smoking Status Former smoker; Type: Cigarettes; Started at age: 21; Stopped at age: 34; entered on: 07/12/14 Sex
--- OUTSIDE RECORDS SUMMARY | 2022-12-26 12:03 | XMS_ITS | Continuity of Care Document ---
Author Name Unknown Organization [facility] Address [address] [facility], [address] [place] [address]- Care Team Providers Care V Belt Builder Name Role Phone Ashley Akins MD Primary Care Physician Encounter 02/13/21 - 02/20/21 [facility] [address] [facility], [address] [place] [address]- Attending Physician: Ashley Akins MD Admitting Physician: [...] Vaccine (oldterm) 06/28/00 Given 1Result Comment: [04/14/2017] 16494-725-14 2Result Comment: [07/06/2013] Ordered by Dr. Ashley [...]
[2022-12-26] MEDS: 0.9 % Sodium Chloride 1,000 ML 80 ML IVCONT (12:13)
[2022-12-26] MEDS: Heparin Sodium,Porcine 5,000 UNIT/ML VIAL 5000 UNIT SUBCUT ×2 (12:14→22:48)
--- NOTE | 2022-12-26 12:41 | HO.PM.IMCN ---
History of Present Illness Data of Consult Service Date: 12/26/22 Requesting physician: Clayton Guevara Primary Care Provider: Ashley Akins MD HPI 72-year-old woman presented to the ER with complaints of abdominal pain that started approximately a week ago. She denied nausea, vomiting, diarrhea, fever. She went to an urgent care clinic 3 days ago and was started on amoxicillin. She felt like she did not improve and continued to have pain. Abdominal CT showed sigmoid diverticulitis with small fluid collection. She was seen and evaluated by General surgery with plan for admission. Labs within acceptable limits although she did have an elevated bilirubin of 1.3 and her vital signs were stable. Patient did report a history of alcohol use but denied any history of alcohol withdrawal seizures or alcohol withdrawal symptoms. Review of Systems Review of Systems: Denies any recent fever chills or decrease in appetite respiratory denies any shortness of breath coverage production cardiovascular is adjustment of any PND or edema gastrointestinal denies any dysphagia abdominal pain nausea vomiting or diarrhea genitourinary denies any dysuria frequency or hematuria musculoskeletal denies any joint pain or swelling neuropsych denies any weakness or seizures all other systems reviewed are negative [facility] Medical History Daily consumption of alcohol Diverticular disease Pertinent family history: colon cancer Surgical History H/O neck surgery History of appendectomy Social History Household Members: Family Housing: House Do you presently have visiting nurse or other home services: No Alcohol intake: current Alcohol intake frequency: 3 or more drinks per day Alcohol type: wine Patient Tobacco Use Status: Never used Tobacco service: No Meds Allergies Allergy/AdvReac Type Severity Reaction Status Date / Time Sulfa (Sulfonamide AdvReac Rash Verified 01/11/23 14:24 Antibiotics) Active Medications: Current Medications Heparin Sodium (Porcine) (Heparin Sodium,Porcine 5,000 Unit/Ml Vial) 5,000 unit SUBCUT Q12H [facility] Last Admin: 12/26/22 12:14 Dose: 5,000 unit Sodium Chloride (Ns) 1,000 mls @ 80 mls/hr IVCONT .[id number] [facility] Last Admin: 12/26/22 12:13 Dose: 80 mls/hr Piperacillin Sod/Tazobactam (Sod 3.375 gm/ Sodium Chloride) 50 mls @ 100 mls/hr IV Q6H [facility] Morphine Sulfate (Morphine Sulfate 2 Mg/Ml Cartridge) 2 mg IVPUSH Q4H PRN; Protocol PRN Reason: pain, severe Sodium Chloride (0.9 % Sodium Chloride Flush 3 Ml Syringe) 3 ml IVFLUSH QSHIFT [facility] Home Medications Medication Instructions Recorded Confirmed Last Taken Type estradiol 0.01% (0.1 mg/gram) 1 g vaginal 2XW 03/04/22 01/11/23 12/25/22 History vaginal cream amoxicillin 875 mg-potassium 1 tab PO Q12H 12/26/22 01/11/23 12/25/22 22:00 History clavulanate 125 mg tablet calcium carbonate 500 mg calcium 500 mg PO BID 12/26/22 01/11/23 Unknown History (1,250 mg) tablet ibuprofen 400 mg tablet 400 mg PO Q8H PRN Pain 12/26/22 01/11/23 Unknown History vitamins A,C,H-gune-gtdoac 2,148 1 tab PO BID 12/26/22 01/11/23 Unknown History mcg-113 mg-45 mg-17.4 mg tablet (PreserVision AREDS) Physical Exam Vital Signs and Narrative: Vital Signs: Last Vital Signs Temp 97.9 F 12/26/22 09:12 Pulse 93 12/26/22 12:23 Resp 17 12/26/22 12:23 BP 124/73 12/26/22 12:23 Pulse Ox 99 12/26/22 12:23 O2 Del Method Room Air 12/26/22 12:23 BMI result Body Mass Index 26.4 Appearing in no acute distress head is normocephalic atraumatic eyes pupils are PERRLA sclera is anicteric mouth throat mucous membranes are intact and moist neck is supple no lymphadenopathy, no JVD noted lung sounds are clear to auscultation heart regular rate rhythm, clear S1, S2 positive bowel sounds, abdomen is soft, diffuse tenderness neuro patient is alert x3, no focal deficits Results Labs 12/26/22 09:34 12/26/22 09:34 Labs: Laboratory Results - last 24 hr 12/26/22 12/26/22 12/26/22 09:34 09:34 11:36 MCV 97.3 MCH 33.2 H MCHC 34.2 RDW 12.6 Plt Count 256 MPV 8.9 L Immature Gran % (Auto) 0.8 H Neut % (Auto) 82.8 H Lymph % (Auto) 7.6 L [place] % (Auto) 8.0 Eos % (Auto) 0.6 Baso % (Auto) 0.2 Lymph # (Auto) 0.9 L [place] # (Auto) 1.0 Eos # (Auto) 0.1 Baso # (Auto) 0.0 Abs Immat Gran (auto) 0.10 H Absolute Neuts (auto) 10.2 H Absolute Nucleated RBC 0.000 Nucleated RBC % (auto) 0.0 Anion Gap 11 L Estim Creat Clear Calc 69.9 Estimated GFR > 60 Random Glucose 116 H Calcium 9.7 Total Bilirubin 1.3 H AST 54 H ALT 49 H Alkaline Phosphatase 156 H Total Protein 7.1 Albumin 3.9 Lipase 25 Urine Color Yellow Urine Appearance Clear Urine pH 7.0 Ur Specific [place] >= 1.030 H Urine Protein Negative Urine Glucose (UA) Negative Urine Ketones Negative Urine Blood Negative Urine Nitrite Negative Ur Leukocyte Esterase Negative Imaging Radiologist's Impressions: Impressions Abdomen/Pelvis CT 12/26/22 10:32 IMPRESSION: Sigmoid diverticulitis. Small fluid collections along the left lateral sigmoid colon inseparable from the left adnexa. It is uncertain whether this represents intramural abscesses or small extraluminal abscesses or contained perforations. Largest area measures 2 cm. No evidence of obstruction or free air. Small amount of fluid in the endometrial cavity. This could be better assessed with pelvic ultrasound if clinically indicated/history of vaginal bleeding. Fleischner guidelines were followed. Assessment and Plan (1) Daily consumption of alcohol: Status: Acute Plan 72-year-old woman admitted by general surgery for acute diverticulitis with possible abscess Acute diverticulitis Management as per surgical team Pain Management Alcohol use patient reports that she drinks 3 8 oz glasses wine every night Her last drink was on Wednesday now or in the past No need for phenobarbital protocol this time, will place on CIWA scale Transaminitis Likely secondary to alcohol abuse Follow trend anxiety Will add p.r.n. benzodiazepine DVT prophylaxis as per surgical team Full code Time Spent With Patient Time: Total time managing care of this patient today ____ minutes.
--- NOTE | 2022-12-26 12:51 | PHA.MEDREC ---
Pharmacy Consult ? Medication Reconciliation Pharmacy has completed the medication reconciliation. spoke with patient
[2022-12-26] MEDS: Morphine Sulfate 2 MG/ML CARTRIDGE IVPUSH ×3 (14:03→22:54)
--- NOTE | 2022-12-26 15:26 | PC.NURSE ---
completed CIWA. score at this time a 1. pt last drink was on wednesday
[2022-12-27] MEDS: 0.9 % Sodium Chloride 1,000 ML 80 ML IVCONT ×2 (00:37→13:53)
[2022-12-27] MEDS: Piperacillin Sodium/Tazobactam 3.375 GM in 0.9 % Sodium Chloride 50 ML IV ×4 (04:51→23:41)
[2022-12-27] MEDS: Morphine Sulfate 2 MG/ML CARTRIDGE IVPUSH ×3 (07:39→22:55)
[2022-12-27 07:52] VITALS: BP 132/61; PULSE 90; RESP 17; TEMP 36.4; O2SAT 97
[2022-12-27 08:01] LABS: Hematocrit 32.9 % (37.0-47.0); Mean Corpuscular HGB Conc 33.4 g/dl (31.0-35.0); Mean Corpuscular Hemoglobin 33.2 pg (27.0-33.0); Mean Corpuscular Volume 99.4 fL (80.0-98.0); Platelet Count 258 X10*3/uL (160-400); Red Blood Count 3.31 X10*6/uL (4.20-5.50); Red Cell Distribution Width 12.8 % (11.0-16.0); White Blood Count 9.5 X10*3/uL (4.8-10.8)
[2022-12-27 08:15] LABS: Anion Gap 10 (12-20); Blood Urea Nitrogen 5 mg/dL (9-16); Calcium 9.1 mg/dL (8.4-10.2); Carbon Dioxide 24 mmol/L (22-29); Chloride 106 mmol/L (96-108); Estimated Glomerular Filt Rate > 60; Glucose Random 126 mg/dL (60-115); Potassium 3.9 mmol/L (3.3-5.1); Sodium 136 mmol/L (135-145)
--- NOTE | 2022-12-27 09:40 | P.PNIM_ITS ---
Subjective Subjective Date of Service: 12/27/22 Review of Systems Follow up consultation, diverticulitis still with pain no nausea or vomiting Physical Exam Vital Signs: Vital Signs: Last Vital Signs Temp 97.5 F 12/27/22 07:52 Pulse 90 12/27/22 07:52 Resp 17 12/27/22 07:52 BP 132/61 12/27/22 07:52 Pulse Ox 97 12/27/22 07:52 O2 Del Method Room Air 12/27/22 07:52 O2 Flow Rate 1 12/26/22 20:00 BMI result Body Mass Index 25.9 Appearing in no acute distress LSCTA heart regular rate rhythm, clear S1, S2 positive bowel sounds, abdomen is soft, nontender neuro patient is alert x3, no focal deficits Objective Data Active Medications Heparin Sodium (Porcine) (Heparin Sodium,Porcine 5,000 Unit/Ml Vial) 5,000 unit SUBCUT Q12H [facility] Last Admin: 12/26/22 22:48 Dose: 5,000 unit Documented By: ROBERT Sodium Chloride (Ns) 1,000 mls @ 80 mls/hr IVCONT .[id number] [facility] Last Admin: 12/27/22 00:37 Dose: 80 mls/hr Documented By: ROBERT Piperacillin Sod/Tazobactam (Sod 3.375 gm/ Sodium Chloride) 50 mls @ 100 mls/hr IV Q6H [facility] Last Infusion: 12/27/22 05:26 Dose: 0 mls/hr Documented By: ROBERT Lorazepam (Lorazepam 0.5 Mg Tablet) 0.25 mg PO Q8H PRN PRN Reason: Anxiety Morphine Sulfate (Morphine Sulfate 2 Mg/Ml Cartridge) 2 mg IVPUSH Q3H PRN; Protocol PRN Reason: pain, severe Last Admin: 12/27/22 07:39 Dose: 2 mg Documented By: AXEL Sodium Chloride (0.9 % Sodium Chloride Flush 3 Ml Syringe) 3 ml IVFLUSH QSHIFT [facility] Last Admin: 12/27/22 07:01 Dose: Not Given Documented By: AXEL Non-Admin Reason: IV Running Labs 12/27/22 07:45 12/27/22 07:45 Labs: Laboratory Results - last 24 hr 12/26/22 12/26/22 12/26/22 09:34 09:34 11:36 MCV 97.3 MCH 33.2 H MCHC 34.2 RDW 12.6 Plt Count 256 MPV 8.9 L Immature Gran % (Auto) 0.8 H Neut % (Auto) 82.8 H Lymph % (Auto) 7.6 L [place] % (Auto) 8.0 Eos % (Auto) 0.6 Baso % (Auto) 0.2 Lymph # (Auto) 0.9 L [place] # (Auto) 1.0 Eos # (Auto) 0.1 Baso # (Auto) 0.0 Abs Immat Gran (auto) 0.10 H Absolute Neuts (auto) 10.2 H Absolute Nucleated RBC 0.000 Nucleated RBC % (auto) 0.0 Anion Gap 11 L Estim Creat Clear Calc 69.9 Estimated GFR > 60 Random Glucose 116 H Calcium 9.7 Total Bilirubin 1.3 H AST 54 H ALT 49 H Alkaline Phosphatase 156 H Total Protein 7.1 Albumin 3.9 Lipase 25 Urine Color Yellow Urine Appearance Clear Urine pH 7.0 Ur Specific [place] >= 1.030 H Urine Protein Negative Urine Glucose (UA) Negative Urine Ketones Negative Urine Blood Negative Urine Nitrite Negative Ur Leukocyte Esterase Negative 12/27/22 12/27/22 07:45 07:45 MCV 99.4 H MCH 33.2 H MCHC 33.4 RDW 12.8 Plt Count 258 MPV 9.0 L Immature Gran % (Auto) Neut % (Auto) Lymph % (Auto) [place] % (Auto) Eos % (Auto) Baso % (Auto) Lymph # (Auto) [place] # (Auto) Eos # (Auto) Baso # (Auto) Abs Immat Gran (auto) Absolute Neuts (auto) Absolute Nucleated RBC 0.000 Nucleated RBC % (auto) 0.0 Anion Gap 10 L Estim Creat Clear Calc 65.0 Estimated GFR > 60 Random Glucose 126 H Calcium 9.1 D Total Bilirubin AST ALT Alkaline Phosphatase Total Protein Albumin Lipase Urine Color Urine Appearance Urine pH Ur Specific [place] Urine Protein Urine Glucose (UA) Urine Ketones Urine Blood Urine Nitrite Ur Leukocyte Esterase Assessment and Plan (1) Diverticulitis of large intestine with complication: Status: Acute Plan 72-year-old woman admitted by general surgery for acute diverticulitis with possible abscess Acute diverticulitis Management as per surgical team Pain Management Alcohol use patient reports that she drinks 3-8 oz glasses of wine every night Her last drink was on Wednesday No need for phenobarbital protocol at this time, will place on CIWA scale Transaminitis Likely secondary to alcohol abuse Follow trend anxiety Will add p.r.n. benzodiazepine DVT prophylaxis as per surgical team Full code Attending Dr. Roque Time Spent With Patient Time: Total time managing care of this patient today ____ minutes. Quality Stroke Does the patient have a stroke diagnosis?: No VTE Prior VTE?: No VTE Risk Level:: Medical - moderate - high VTE Device Contraindication: N/A - Device Ordered VTE Drug Contraindication: N/A - Med Ordered
--- NOTE | 2022-12-27 10:11 | PM.PNGS ---
Subjective Subjective Date of Service: 12/27/22 Interval history: still has some LLQ pain, not worse, not severe no other complaints no events reported Physical Exam Vital Signs: Vital Signs: Last Vital Signs Temp 97.5 F 12/27/22 07:52 Pulse 90 12/27/22 07:52 Resp 17 12/27/22 07:52 BP 132/61 12/27/22 07:52 Pulse Ox 97 12/27/22 07:52 O2 Del Method Room Air 12/27/22 07:52 O2 Flow Rate 1 12/26/22 20:00 BMI result Body Mass Index 25.9 Const: General: comfortable and no acute distress Resp: Effort & Inspection: normal respiratory effort Cardio: Rate: regular rate GI: Other: some tenderness on LLQ Palpation (GI): Soft to palpation, not firm and no guarding Objective Data Active Medications Heparin Sodium (Porcine) (Heparin Sodium,Porcine 5,000 Unit/Ml Vial) 5,000 unit SUBCUT Q12H [facility] Last Admin: 12/26/22 22:48 Dose: 5,000 unit Documented By: ROBERT Sodium Chloride (Ns) 1,000 mls @ 80 mls/hr IVCONT .[id number] [facility] Last Admin: 12/27/22 00:37 Dose: 80 mls/hr Documented By: ROBERT Piperacillin Sod/Tazobactam (Sod 3.375 gm/ Sodium Chloride) 50 mls @ 100 mls/hr IV Q6H [facility] Last Infusion: 12/27/22 05:26 Dose: 0 mls/hr Documented By: ROBERT Lorazepam (Lorazepam 0.5 Mg Tablet) 0.25 mg PO Q8H PRN PRN Reason: Anxiety Morphine Sulfate (Morphine Sulfate 2 Mg/Ml Cartridge) 2 mg IVPUSH Q3H PRN; Protocol PRN Reason: pain, severe Last Admin: 12/27/22 07:39 Dose: 2 mg Documented By: AXEL Sodium Chloride (0.9 % Sodium Chloride Flush 3 Ml Syringe) 3 ml IVFLUSH QSHIFT [facility] Last Admin: 12/27/22 07:01 Dose: Not Given Documented By: AXEL Non-Admin Reason: IV Running Labs 12/27/22 07:45 12/27/22 07:45 Labs: Laboratory Results - last 24 hr 07/12/27/22 12/27/22 11:36 07:45 07:45 MCV 99.4 H MCH 33.2 H MCHC 33.4 RDW 12.8 Plt Count 258 MPV 9.0 L Absolute Nucleated RBC 0.000 Nucleated RBC % (auto) 0.0 Anion Gap 10 L Estim Creat Clear Calc 65.0 Estimated GFR > 60 Random Glucose 126 H Calcium 9.1 D Urine Color Yellow Urine Appearance Clear Urine pH 7.0 Ur Specific [place] >= 1.030 H Urine Protein Negative Urine Glucose (UA) Negative Urine Ketones Negative Urine Blood Negative Urine Nitrite Negative Ur Leukocyte Esterase Negative Laboratory Results WBC 9.5 X10*3/uL (4.8-10.8) 12/27/22 07:45 RBC 3.31 X10*6/uL (4.20-5.50) L 12/27/22 07:45 Hgb 11.0 g/dl (12.0-16.0) L 12/27/22 07:45 Hct 32.9 % (37.0-47.0) L 12/27/22 07:45 MCV 99.4 fL (80.0-98.0) H 12/27/22 07:45 MCH 33.2 pg (27.0-33.0) H 12/27/22 07:45 MCHC 33.4 g/dl (31.0-35.0) 12/27/22 07:45 RDW 12.8 % (11.0-16.0) 12/27/22 07:45 Plt Count 258 X10*3/uL (160-400) 12/27/22 07:45 MPV 9.0 fL (9.4-12.3) L 12/27/22 07:45 Immature Gran % (Auto) 0.8 % (0.0-0.4) H 12/26/22 09:34 Neut % (Auto) 82.8 % (45-73) H 12/26/22 09:34 Lymph % (Auto) 7.6 % (20-40) L 12/26/22 09:34 [place] % (Auto) 8.0 % (2-11) 12/26/22 09:34 Eos % (Auto) 0.6 % (0-4) 12/26/22 09:34 Baso % (Auto) 0.2 % (0-2) 12/26/22 09:34 Lymph # (Auto) 0.9 X10*3/uL (1.2-4.9) L 12/26/22 09:34 [place] # (Auto) 1.0 X10*3/uL (0.1-1.2) 12/26/22 09:34 Eos # (Auto) 0.1 X10*3/uL (0.0-0.4) 12/26/22 09:34 Baso # (Auto) 0.0 X10*3/uL (0.0-0.2) 12/26/22 09:34 Abs Immat Gran (auto) 0.10 X10*3/uL (0.00-0.03) H 12/26/22 09:34 Absolute Neuts (auto) 10.2 x10*3/uL (2.0-8.3) H 12/26/22 09:34 Absolute Nucleated RBC 0.000 X10*3/uL (0.0-0.012) 12/27/22 07:45 Nucleated RBC % (auto) 0.0 /100WBC (0.0-0.2) 12/27/22 07:45 Sodium 136 mmol/L (135-145) 12/27/22 07:45 Potassium 3.9 mmol/L (3.3-5.1) 12/27/22 07:45 Chloride 106 mmol/L (96-108) 12/27/22 07:45 Carbon Dioxide 24 mmol/L (22-29) 12/27/22 07:45 Anion Gap 10 (12-20) L 12/27/22 07:45 BUN 5 mg/dL (9-16) L 12/27/22 07:45 Creatinine 0.67 mg/dL (0.5-1.4) 12/27/22 07:45 Estim Creat Clear Calc 65.0 12/27/22 07:45 Estimated GFR > 60 12/27/22 07:45 Random Glucose 126 mg/dL (60-115) H 12/27/22 07:45 Calcium 9.1 mg/dL (8.4-10.2) D 12/27/22 07:45 Total Bilirubin 1.3 mg/dL (0.0-1.0) H 12/26/22 09:34 AST 54 U/L (5-31) H 12/26/22 09:34 ALT 49 U/L (0-31) H 12/26/22 09:34 Alkaline Phosphatase 156 U/L (39-117) H 12/26/22 09:34 Total Protein 7.1 g/dL (6.5-8.0) 12/26/22 09:34 Albumin 3.9 g/dL (3.5-5.0) 12/26/22 09:34 Lipase 25 U/L (8-78) 12/26/22 09:34 Urine Color Yellow 12/26/22 11:36 Urine Appearance Clear 12/26/22 11:36 Urine pH 7.0 (5.0-9.0) 12/26/22 11:36 Ur Specific [place] >= 1.030 (1.005-1.025) H 12/26/22 11:36 Urine Protein Negative mg/dL (Neg-Trace) 12/26/22 11:36 Urine Glucose (UA) Negative mg/dL (Negative) 12/26/22 11:36 Urine Ketones Negative mg/dL (Negative) 12/26/22 11:36 Urine Blood Negative (Negative) 12/26/22 11:36 Urine Nitrite Negative (Negative) 12/26/22 11:36 Ur Leukocyte Esterase Negative (Negative) 12/26/22 11:36 Impressions Abdomen/Pelvis CT 12/26/22 10:32 IMPRESSION: Sigmoid diverticulitis. Small fluid collections along the left lateral sigmoid colon inseparable from the left adnexa. It is uncertain whether this represents intramural abscesses or small extraluminal abscesses or contained perforations. Largest area measures 2 cm. No evidence of obstruction or free air. Small amount of fluid in the endometrial cavity. This could be better assessed with pelvic ultrasound if clinically indicated/history of vaginal bleeding. Fleischner guidelines were followed. Procedures Date of Service Date of Service: 12/27/22 Progress Note: A&P Assessment and plan (1) Diverticulitis of large intestine with complication: Status: Acute Assessment and Plan: with poss. intramural abscess, microperf exam very benign WBC normal still with some tenderness will keep on clears IV abx looks well overall no drainable collection will review with radiologist Time Spent With Patient Time: Total time managing care of this patient today ____ minutes. Quality Stroke Does the patient have a stroke diagnosis?: No VTE Prior VTE?: No VTE Risk Level:: Medical - moderate - high VTE Device Contraindication: N/A - Device Ordered VTE Drug Contraindication: N/A - Med Ordered
[2022-12-27] MEDS: Heparin Sodium,Porcine 5,000 UNIT/ML VIAL 5000 UNIT SUBCUT ×2 (10:45→23:44)
[2022-12-27 15:54] VITALS: BP 136/60; PULSE 76; RESP 17; TEMP 36.1; O2SAT 100
--- NOTE | 2022-12-27 16:37 | MHC.CM.PN ---
PT REPORTS SHE LIVES WITH HER DAUGHTER, SON-IN-LAW, AND GRANDSON SHE IS INDEPENDENT WITH CARE, USES NO DME, AND HAS NO SERVICES SHE BELIEVES THERE IS A COPY OF HER HCP AT HER PCP OFFICE PCP: REMIGIO BOONE IMM DELIVERED DCP: HOME NO SERVICES VIA FAMILY TRANSPORT
[2022-12-27 20:00] VITALS: BP 150/69; PULSE 82; RESP 18; TEMP 36.6; O2SAT 99
[2022-12-28] MEDS: 0.9 % Sodium Chloride 1,000 ML 80 ML IVCONT (02:07)
[2022-12-28 04:00] VITALS: BP 128/60; PULSE 81; RESP 16; TEMP 36.4; O2SAT 97
[2022-12-28] MEDS: Piperacillin Sodium/Tazobactam 3.375 GM in 0.9 % Sodium Chloride 50 ML IV ×4 (05:43→22:51)
[2022-12-28 06:09] LABS: Anion Gap 10 (12-20); Blood Urea Nitrogen 3 mg/dL (9-16); Carbon Dioxide 25 mmol/L (22-29); Chloride 109 mmol/L (96-108); Creatinine Clr Calc Pharmacy 72.6; Estimated Glomerular Filt Rate > 60; Glucose Random 92 mg/dL (60-115); Potassium 3.8 mmol/L (3.3-5.1); Sodium 140 mmol/L (135-145)
[2022-12-28 08:00] VITALS: BP 151/66; PULSE 80; RESP 18; TEMP 36.3; O2SAT 98
--- NOTE | 2022-12-28 08:42 | P.PNIM_ITS ---
Subjective Subjective Date of Service: 12/28/22 Review of Systems Follow up consultation, diverticulitis pain better controlled no nausea or vomiting Physical Exam Vital Signs: Vital Signs: Last Vital Signs Temp 97.4 F 12/28/22 08:00 Pulse 80 12/28/22 08:00 Resp 18 12/28/22 08:00 BP 151/66 H 12/28/22 08:00 Pulse Ox 98 12/28/22 08:00 O2 Del Method Room Air 12/28/22 08:00 O2 Flow Rate 1 12/26/22 20:00 BMI result Body Mass Index 25.9 Appearing in no acute distress lung sounds are clear to auscultation heart regular rate rhythm, clear S1, S2 positive bowel sounds, abdomen is soft, LQ tenderness neuro patient is alert x3, no focal deficits Objective Data Active Medications Heparin Sodium (Porcine) (Heparin Sodium,Porcine 5,000 Unit/Ml Vial) 5,000 unit SUBCUT Q12H [facility] Last Admin: 12/27/22 23:44 Dose: 5,000 unit Documented By: ESTEPHANIA Sodium Chloride (Ns) 1,000 mls @ 80 mls/hr IVCONT .[id number] [facility] Last Infusion: 12/28/22 06:15 Dose: 80 mls/hr Documented By: ESTEPHANIA Piperacillin Sod/Tazobactam (Sod 3.375 gm/ Sodium Chloride) 50 mls @ 100 mls/hr IV Q6H [facility] Last Infusion: 12/28/22 06:15 Dose: 0 mls/hr Documented By: ESTEPHANIA Lorazepam (Lorazepam 0.5 Mg Tablet) 0.25 mg PO Q8H PRN PRN Reason: Anxiety Morphine Sulfate (Morphine Sulfate 2 Mg/Ml Cartridge) 2 mg IVPUSH Q3H PRN; Prot ocol PRN Reason: pain, severe Last Admin: 12/27/22 22:55 Dose: 2 mg Documented By: ROBERT Sodium Chloride (0.9 % Sodium Chloride Flush 3 Ml Syringe) 3 ml IVFLUSH QSHIFT [facility] Last Admin: 12/28/22 07:21 Dose: Not Given Documented By: AXEL Non-Admin Reason: IV Running Labs 12/27/22 07:45 12/28/22 05:43 Labs: Laboratory Results - last 24 hr 12/28/22 05:43 Anion Gap 10 L Estim Creat Clear Calc 72.6 Estimated GFR > 60 Random Glucose 92 Calcium 9.0 Assessment and Plan (1) Diverticulitis of large intestine with complication: Status: Acute Plan 72-year-old woman admitted by general surgery for acute diverticulitis with possible abscess Acute diverticulitis Management as per surgical team Pain Management Alcohol use. No withdrawal symptoms during hospitalization patient reports that she drinks 3-8 oz glasses of wine every night Her last drink was on Wednesday No need for phenobarbital protocol at this time, will place on CIWA scale Transaminitis secondary to alcohol abuse Follow trend anxiety Will add p.r.n. benzodiazepine DVT prophylaxis as per surgical team Full code Attending Dr. Vega Medical consultation complete, will sign off Time Spent With Patient Time: Total time managing care of this patient today ____ minutes. Quality Stroke Does the patient have a stroke diagnosis?: No VTE Prior VTE?: No VTE Risk Level:: Medical - moderate - high VTE Device Contraindication: N/A - Device Ordered VTE Drug Contraindication: N/A - Med Ordered
[2022-12-28] MEDS: Morphine Sulfate 2 MG/ML CARTRIDGE IVPUSH ×3 (09:35→23:03)
--- NOTE | 2022-12-28 09:46 | PM.PNGS ---
Subjective Subjective Date of Service: 12/28/22 Interval history: feels well says she has pain but much improved passing flatus Physical Exam Vital Signs: Vital Signs: Last Vital Signs Temp 97.4 F 12/28/22 08:00 Pulse 80 12/28/22 08:00 Resp 18 12/28/22 08:00 BP 151/66 H 12/28/22 08:00 Pulse Ox 98 12/28/22 08:00 O2 Del Method Room Air 12/28/22 08:00 O2 Flow Rate 1 12/26/22 20:00 BMI result Body Mass Index 25.9 Const: General: comfortable and no acute distress Resp: Effort & Inspection: normal respiratory effort Cardio: Rate: regular rate GI: Palpation (GI): Soft to palpation, not firm, Tenderness to palpation present (GI) (mild LLQ tenderness) and no guarding Objective Data Active Medications Heparin Sodium (Porcine) (Heparin Sodium,Porcine 5,000 Unit/Ml Vial) 5,000 unit SUBCUT Q12H [facility] Last Admin: 12/27/22 23:44 Dose: 5,000 unit Documented By: ESTEPHANIA Sodium Chloride (Ns) 1,000 mls @ 80 mls/hr IVCONT .[id number] [facility] Last Infusion: 12/28/22 06:15 Dose: 80 mls/hr Documented By: ESTEPHANIA Piperacillin Sod/Tazobactam (Sod 3.375 gm/ Sodium Chloride) 50 mls @ 100 mls/hr IV Q6H [facility] Last Infusion: 12/28/22 06:15 Dose: 0 mls/hr Documented By: ESTEPHANIA Lorazepam (Lorazepam 0.5 Mg Tablet) 0.25 mg PO Q8H PRN PRN Reason: Anxiety Morphine Sulfate (Morphine Sulfate 2 Mg/Ml Cartridge) 2 mg IVPUSH Q3H PRN; Protocol PRN Reason: pain, severe Last Admin: 12/28/22 09:35 Dose: 2 mg Documented By: AXEL Sodium Chloride (0.9 % Sodium Chloride Flush 3 Ml Syringe) 3 ml IVFLUSH QSHIFT [facility] Last Admin: 12/28/22 07:21 Dose: Not Given Documented By: AXEL Non-Admin Reason: IV Running Labs 12/27/22 07:45 12/28/22 05:43 Labs: Laboratory Results - last 24 hr 12/28/22 05:43 Anion Gap 10 L Estim Creat Clear Calc 72.6 Estimated GFR > 60 Random Glucose 92 Calcium 9.0 Procedures Date of Service Date of Service: 12/28/22 Progress Note: A&P Assessment and plan (1) Diverticulitis of large intestine with complication: Status: Acute Assessment and Plan: continues to improve abd soft and very benign looks well will review images w/ radiologist hope to advance diet IV abx Time Spent With Patient Time: Total time managing care of this patient today ____ minutes. Quality Stroke Does the patient have a stroke diagnosis?: No VTE Prior VTE?: No VTE Risk Level:: Medical - moderate - high VTE Device Contraindication: N/A - Device Ordered VTE Drug Contraindication: N/A - Med Ordered
[2022-12-28] MEDS: Heparin Sodium,Porcine 5,000 UNIT/ML VIAL 5000 UNIT SUBCUT ×2 (10:56→22:55)
--- NOTE | 2022-12-28 12:44 | MHC.CM.PN ---
PT NOT YET CLEARED TO DC DCP: HOME NO SERVICES VIA FAMILY TRANSPORT
[2022-12-28 15:25] VITALS: BP 186/81; PULSE 87; RESP 17; TEMP 36.6; O2SAT 99
[2022-12-28] MEDS: LORazepam 0.5 MG TABLET 0.25 MG PO (16:41)
[2022-12-28 19:42] VITALS: BP 162/78; PULSE 81; RESP 16; TEMP 36.7; O2SAT 97
[2022-12-28] MEDS: 0.9 % Sodium Chloride Flush 3 ML SYRINGE IVFLUSH (23:10)
[2022-12-28 23:41] VITALS: RESP 18
[2022-12-29] MEDS: 0.9 % Sodium Chloride 1,000 ML 80 ML IVCONT ×2 (01:42→15:09)
[2022-12-29 04:00] VITALS: BP 156/72; PULSE 76; RESP 16; TEMP 36.1; O2SAT 95
[2022-12-29] MEDS: Piperacillin Sodium/Tazobactam 3.375 GM in 0.9 % Sodium Chloride 50 ML IV ×4 (04:49→22:59)
[2022-12-29 08:00] VITALS: BP 150/98; PULSE 89; RESP 18; TEMP 36.5; O2SAT 97
--- NOTE | 2022-12-29 08:17 | PM.PNGS ---
Subjective Subjective Date of Service: 12/30/22 Interval history: still with some lower abdl pain but says this is better no N/V tolerating liquids no fever Physical Exam Vital Signs: Vital Signs: Last Vital Signs Temp 97.0 F 12/29/22 04:00 Pulse 76 12/29/22 04:00 Resp 16 12/29/22 04:00 BP 156/72 H 12/29/22 04:00 Pulse Ox 95 12/29/22 04:00 O2 Del Method Room Air 12/29/22 04:00 O2 Flow Rate 1 12/26/22 20:00 BMI result Body Mass Index 25.9 Const: General: comfortable and no acute distress Orientation/consciousness: patient oriented x3 Resp: Auscultation: clear to auscultation bilaterally Cardio: Rhythm: regular rhythm GI: Palpation (GI): Soft to palpation, Tenderness to palpation present (GI) (mild tenderness lower abd) and no guarding Neuro: General: patient oriented x3 Objective Data Active Medications Heparin Sodium (Porcine) (Heparin Sodium,Porcine 5,000 Unit/Ml Vial) 5,000 unit SUBCUT Q12H [facility] Last Admin: 12/28/22 22:55 Dose: 5,000 unit Documented By: CHARLIE Sodium Chloride (Ns) 1,000 mls @ 80 mls/hr IVCONT .[id number] [facility] Last Admin: 12/29/22 01:42 Dose: 80 mls/hr Documented By: CHARLIE Piperacillin Sod/Tazobactam (Sod 3.375 gm/ Sodium Chloride) 50 mls @ 100 mls/hr IV Q6H [facility] Last Infusion: 12/29/22 05:20 Dose: 0 mls/hr Documented By: CHARLIE Lorazepam (Lorazepam 0.5 Mg Tablet) 0.25 mg PO Q8H PRN PRN Reason: Anxiety Last Admin: 12/28/22 16:41 Dose: 0.25 mg Documented By: AXEL Morphine Sulfate (Morphine Sulfate 2 Mg/Ml Cartridge) 2 mg IVPUSH Q3H PRN; Protocol PRN Reason: pain, severe Last Admin: 12/28/22 23:03 Dose: 2 mg Documented By: CHARLIE Sodium Chloride (0.9 % Sodium Chloride Flush 3 Ml Syringe) 3 ml IVFLUSH QSHIFT [facility] Last Admin: 12/29/22 07:10 Dose: Not Given Documented By: VALENTINA Non-Admin Reason: IV Running Labs 12/27/22 07:45 12/28/22 05:43 Procedures Date of Service Date of Service: 12/30/22 Progress Note: A&P Assessment and plan (1) Diverticulitis of large intestine with complication: Status: Acute Assessment and Plan: clinically improving still with some pain will not advance diet for now IV abx awaiting to review CT with radiologists Time Spent With Patient Time: Total time managing care of this patient today ____ minutes. Quality Stroke Does the patient have a stroke diagnosis?: No VTE Prior VTE?: No VTE Risk Level:: Medical - moderate - high VTE Device Contraindication: N/A - Device Ordered VTE Drug Contraindication: N/A - Med Ordered
[2022-12-29] MEDS: LORazepam 0.5 MG TABLET 0.25 MG PO (08:29)
[2022-12-29] MEDS: Heparin Sodium,Porcine 5,000 UNIT/ML VIAL 5000 UNIT SUBCUT ×2 (11:43→23:01)
[2022-12-29] MEDS: LORazepam 1 MG TABLET PO (15:07)
[2022-12-29 15:36] VITALS: BP 182/90; PULSE 83; RESP 18; TEMP 36.6; O2SAT 98
[2022-12-29 19:48] VITALS: BP 186/84; PULSE 96; RESP 18; TEMP 36.4; O2SAT 97
[2022-12-29 21:23] VITALS: BP 148/76
[2022-12-29 23:52] VITALS: BP 158/88; PULSE 84; RESP 18; TEMP 36.4; O2SAT 98
[2022-12-30] MEDS: Piperacillin Sodium/Tazobactam 3.375 GM in 0.9 % Sodium Chloride 50 ML IV ×4 (04:33→23:43)
[2022-12-30] MEDS: 0.9 % Sodium Chloride 1,000 ML 80 ML IVCONT (04:34)
[2022-12-30 07:35] VITALS: BP 169/80; PULSE 84; RESP 18; TEMP 36.9; O2SAT 96
--- NOTE | 2022-12-30 08:54 | PM.PNGS ---
Subjective Subjective Date of Service: 12/30/22 Interval history: Feels well this morning Says pain is much improved Remains anxious Passing flatus and BMs Physical Exam Vital Signs: Vital Signs: Last Vital Signs Temp 98.4 F 12/30/22 07:35 Pulse 84 12/30/22 07:35 Resp 18 12/30/22 07:35 BP 169/80 H 12/30/22 07:35 Pulse Ox 96 12/30/22 07:35 O2 Del Method Room Air 12/30/22 07:35 O2 Flow Rate 1 12/26/22 20:00 BMI result Body Mass Index 25.9 Const: General: comfortable and no acute distress Resp: Effort & Inspection: normal respiratory effort Cardio: Rate: regular rate GI: Palpation (GI): Soft to palpation, not firm, Tenderness to palpation present (GI) (Very minimal tenderness left lower quadrant) and no guarding Objective Data Active Medications Heparin Sodium (Porcine) (Heparin Sodium,Porcine 5,000 Unit/Ml Vial) 5,000 unit SUBCUT Q12H [facility] Last Admin: 12/29/22 23:01 Dose: 5,000 unit Documented By: CHARLIE Sodium Chloride (Ns) 1,000 mls @ 80 mls/hr IVCONT .[id number] [facility] Last Admin: 12/30/22 04:34 Dose: 80 mls/hr Documented By: CHARLIE Piperacillin Sod/Tazobactam (Sod 3.375 gm/ Sodium Chloride) 50 mls @ 100 mls/hr IV Q6H [facility] Last Infusion: 12/30/22 05:05 Dose: 0 mls/hr Documented By: CHARLIE Lorazepam (Lorazepam 1 Mg Tablet) 1 mg PO Q6H PRN PRN Reason: Anxiety Last Admin: 12/29/22 15:07 Dose: 1 mg Documented By: VALENTINA Morphine Sulfate (Morphine Sulfate 2 Mg/Ml Cartridge) 2 mg IVPUSH Q3H PRN; Protocol PRN Reason: pain, severe Last Admin: 12/28/22 23:03 Dose: 2 mg Documented By: CHARLIE Sodium Chloride (0.9 % Sodium Chloride Flush 3 Ml Syringe) 3 ml IVFLUSH QSHIFT [facility] Last Admin: 12/30/22 07:16 Dose: Not Given Documented By: VALENTINA Non-Admin Reason: IV Running Labs 12/27/22 07:45 12/28/22 05:43 Procedures Date of Service Date of Service: 12/30/22 Progress Note: A&P Assessment and plan (1) Diverticulitis of large intestine with complication: Status: Acute Assessment and Plan: Continues to improve clinically CT scan reviewed with radiologist Dr. Segovia - intramural abscess, not drainable Plan to advance diet to full liquids Encouraged to get out of bed IV antibiotics Doing well plan explained to patient Time Spent With Patient Time: Total time managing care of this patient today ____ minutes. Quality Stroke Does the patient have a stroke diagnosis?: No VTE Prior VTE?: No VTE Risk Level:: Medical - moderate - high VTE Device Contraindication: N/A - Device Ordered VTE Drug Contraindication: N/A - Med Ordered
[2022-12-30] MEDS: LORazepam 1 MG TABLET PO ×2 (09:45→23:44)
[2022-12-30] MEDS: Morphine Sulfate 2 MG/ML CARTRIDGE IVPUSH (10:17)
[2022-12-30] MEDS: Heparin Sodium,Porcine 5,000 UNIT/ML VIAL 5000 UNIT SUBCUT ×2 (12:43→23:43)
--- NOTE | 2022-12-30 15:02 | MHC.CM.PN ---
Patient is not medically cleared. DP Home self care. A family member will provide transport home.
[2022-12-30 15:25] VITALS: BP 148/70; PULSE 79; RESP 18; TEMP 36.3; O2SAT 97
[2022-12-30] MEDS: 0.9 % Sodium Chloride Flush 3 ML SYRINGE IVFLUSH ×2 (16:31→23:44)
[2022-12-30 19:17] VITALS: BP 142/65; PULSE 95; RESP 18; TEMP 36.4; O2SAT 98
[2022-12-31 03:13] VITALS: BP 149/74; PULSE 76; RESP 16; TEMP 36.4; O2SAT 95
[2022-12-31] MEDS: Piperacillin Sodium/Tazobactam 3.375 GM in 0.9 % Sodium Chloride 50 ML IV ×4 (05:15→23:01)
[2022-12-31] MEDS: 0.9 % Sodium Chloride Flush 3 ML SYRINGE IVFLUSH ×3 (07:24→23:31)
[2022-12-31 07:54] VITALS: BP 139/66; PULSE 80; RESP 18; TEMP 36.3; O2SAT 97
--- NOTE | 2022-12-31 08:09 | P.PNGS_ITS ---
Subjective Subjective Date of Service: 12/31/22 Interval history: continues to feel better passing flatus tolerating full liquids no N/V no pain Physical Exam Vital Signs: Vital Signs: Last Vital Signs Temp 97.3 F 12/31/22 07:54 Pulse 80 12/31/22 07:54 Resp 18 12/31/22 07:54 BP 139/66 12/31/22 07:54 Pulse Ox 97 12/31/22 07:54 O2 Del Method Room Air 12/31/22 07:54 O2 Flow Rate 1 12/26/22 20:00 BMI result Body Mass Index 25.9 Const: General: comfortable and no acute distress Resp: Effort & Inspection: normal respiratory effort Cardio: Rate: regular rate GI: Palpation (GI): Soft to palpation, not firm, nontender and no guarding Objective Data Active Medications Heparin Sodium (Porcine) (Heparin Sodium,Porcine 5,000 Unit/Ml Vial) 5,000 unit SUBCUT Q12H [facility] Last Admin: 12/30/22 23:43 Dose: 5,000 unit Documented By: ELENA Piperacillin Sod/Tazobactam (Sod 3.375 gm/ Sodium Chloride) 50 mls @ 100 mls/hr IV Q6H [facility] Last Infusion: 12/31/22 05:51 Dose: 0 mls/hr Documented By: ELENA Lorazepam (Lorazepam 1 Mg Tablet) 1 mg PO Q6H PRN PRN Reason: Anxiety Last Admin: 12/30/22 23:44 Dose: 1 mg Documented By: ELENA Morphine Sulfate (Morphine Sulfate 2 Mg/Ml Cartridge) 2 mg IVPUSH Q3H PRN; Protocol PRN Reason: pain, severe Last Admin: 12/30/22 10:17 Dose: 2 mg Documented By: VALENTINA Sodium Chloride (0.9 % Sodium Chloride Flush 3 Ml Syringe) 3 ml IVFLUSH QSHIFT [facility] Last Admin: 12/31/22 07:24 Dose: 3 ml Documented By: VALENTINA Labs 12/27/22 07:45 12/28/22 05:43 Procedures Date of Service Date of Service: 12/31/22 Progress Note: A&P Assessment and plan (1) Diverticulitis of large intestine with complication: Status: Acute Assessment and Plan: improving well abd soft and nontender no fever appears asymptomatic advance diet today continue IV abx ambulate Time Spent With Patient Time: Total time managing care of this patient today ____ minutes. Quality Stroke Does the patient have a stroke diagnosis?: No VTE Prior VTE?: No VTE Risk Level:: Medical - moderate - high VTE Device Contraindication: N/A - Device Ordered VTE Drug Contraindication: N/A - Med Ordered
[2022-12-31] MEDS: Morphine Sulfate 2 MG/ML CARTRIDGE IVPUSH (11:41)
[2022-12-31 16:00] VITALS: BP 156/80; PULSE 91; RESP 18; TEMP 36.8; O2SAT 98
[2022-12-31 19:28] VITALS: BP 156/77; PULSE 90; RESP 20; TEMP 36.3; O2SAT 98
[2022-12-31 23:41] VITALS: BP 159/73; PULSE 65; RESP 18; TEMP 36.4; O2SAT 94
[2023-01-01] MEDS: Piperacillin Sodium/Tazobactam 3.375 GM in 0.9 % Sodium Chloride 50 ML IV ×2 (04:58→10:16)
[2023-01-01 07:48] VITALS: BP 161/76; PULSE 78; RESP 18; TEMP 36.1; O2SAT 98
[2023-01-01] MEDS: 0.9 % Sodium Chloride Flush 3 ML SYRINGE IVFLUSH (08:06)
--- NOTE | 2023-01-01 11:32 | PM.PNGS ---
Subjective Subjective Date of Service: 01/01/23 Interval history: feels well has BMs, flatus denies pain has had no fever tolerating regular diet well she says she is ready to be discharged Physical Exam Vital Signs: Vital Signs: Last Vital Signs Temp 97.0 F 01/01/23 07:48 Pulse 78 01/01/23 07:48 Resp 18 01/01/23 07:48 BP 161/76 H 01/01/23 07:48 Pulse Ox 98 01/01/23 07:48 O2 Del Method Room Air 01/01/23 07:48 O2 Flow Rate 1 12/26/22 20:00 BMI result Body Mass Index 25.9 Const: General: comfortable and no acute distress Resp: Effort & Inspection: normal respiratory effort Cardio: Rate: regular rate GI: Inspection: No distended Palpation (GI): Soft to palpation, not firm, nontender and no guarding Objective Data Active Medications Heparin Sodium (Porcine) (Heparin Sodium,Porcine 5,000 Unit/Ml Vial) 5,000 unit SUBCUT Q12H [facility] Last Admin: 01/01/23 10:21 Dose: Not Given Documented By: LUIS Non-Admin Reason: Patient Refused Piperacillin Sod/Tazobactam (Sod 3.375 gm/ Sodium Chloride) 50 mls @ 100 mls/hr IV Q6H [facility] Last Infusion: 01/01/23 10:51 Dose: 0 mls/hr Documented By: LUIS Lorazepam (Lorazepam 1 Mg Tablet) 1 mg PO Q6H PRN PRN Reason: Anxiety Last Admin: 12/30/22 23:44 Dose: 1 mg Documented By: ELENA Sodium Chloride (0.9 % Sodium Chloride Flush 3 Ml Syringe) 3 ml IVFLUSH QSHIFT [facility] Last Admin: 01/01/23 08:06 Dose: 3 ml Documented By: LUIS Labs 12/27/22 07:45 12/28/22 05:43 Procedures Date of Service Date of Service: 01/01/23 Progress Note: A&P Assessment and plan (1) Diverticulitis of large intestine with complication: Status: Acute Assessment and Plan: clinically resolved no tenderness no fever no leukocytosis abd soft and benign good GI function she feels ready to be discharged she undersands risks of recurrence, especially in view of presence of intramural abscess she may require surgery down the line ffup instructions given Time Spent With Patient Time: Total time managing care of this patient today ____ minutes. Quality Stroke Does the patient have a stroke diagnosis?: No VTE Prior VTE?: No VTE Risk Level:: Medical - moderate - high VTE Device Contraindication: N/A - Device Ordered VTE Drug Contraindication: N/A - Med Ordered
--- NOTE | 2023-01-01 12:39 | MHC.CM.PN ---
PT TO DC HOME TODAY WITH NO SERVICES FAMILY TO TRANSPORT
--- NOTE | 2023-01-06 10:19 | PM.DS ---
DS: Providers Provider Date of Service: 01/01/23 Date of admission: 12/26/22 11:41 Primary care physician: Ashley Akins MD Consults: 12/26/22 11:45 Consult to Hospitalist Routine Comment: Consulting Provider: Hospitalist Reason For Exam: daily ETOH intake DS: Diagnosis Discharge Diagnosis (1) Diverticulitis of large intestine with complication: Status: Acute DS: Summary Hospital Course Hospital Course: 72-year-old female admitted on 12/26/2022 for lower abdominal pain. She had a white count of 12 and her CAT scan had shown appeared to be diverticulitis with an intramural abscess. She was admitted and kept NPO. She was placed on IV Zosyn. In view of the presence of the intramural abscess, had advanced her diet slowly. She was started on clear liquids on her 1st hospital day which she tolerated. She did not have any leukocytosis on repeat CBC. She continued to have good improvement of her pain and tenderness. She did not have any fever. I was able to start her slowly advance her diet although she did have some occasional pain on the left lower quadrant with bowel movements. She also has a history of high intake of wine daily and hospitalist had seen her for this. She did not have any withdrawal symptoms She also has a history of anxiety so she had to be placed on some oral Ativan p.r.n.. She remained afebrile during the course of her hospital stay. She eventually was able to be advanced to regular diet which she tolerated. She had good bowel movements. On the day of her discharge on 01/01/2023, she had remained afebrile was nontender was tolerating regular diet. She was discharged on oral antibiotics and was given instructions for follow-up. Time Spent with Patient Time attestation: Total time managing care of this patient today ____ minutes. Discharge coordination time: Less than 30 minutes Quality: Safe Use of Opioids Does Pt have an Active Cancer Diagnosis on the Problem List?: No Quality: Stroke Does the patient have a stroke diagnosis?: No Physical Exam Vital Signs: Vital Signs: Last Vital Signs Temp 97.0 F 01/01/23 07:48 Pulse 78 01/01/23 07:48 Resp 18 01/01/23 07:48 BP 161/76 H 01/01/23 07:48 Pulse Ox 98 01/01/23 07:48 O2 Del Method Room Air 01/01/23 07:48 O2 Flow Rate 1 12/26/22 20:00 BMI result Body Mass Index 25.9 Const: General: comfortable and no acute distress Orientation/consciousness: patient oriented x3 Neck: Neck: Yes no lymphadenopathy Resp: Auscultation: clear to auscultation bilaterally Cardio: Rhythm: regular rhythm GI: Palpation (GI): Soft to palpation, nontender and no guarding Neuro: General: patient oriented x3 DS: Data Data Completed and Pending Completed studies during hospitalization [Text1]: Laboratory Results WBC 9.5 X10*3/uL (4.8-10.8) 12/27/22 07:45 RBC 3.31 X10*6/uL (4.20-5.50) L 12/27/22 07:45 Hgb 11.0 g/dl (12.0-16.0) L 12/27/22 07:45 Hct 32.9 % (37.0-47.0) L 12/27/22 07:45 MCV 99.4 fL (80.0-98.0) H 12/27/22 07:45 MCH 33.2 pg (27.0-33.0) H 12/27/22 07:45 MCHC 33.4 g/dl (31.0-35.0) 12/27/22 07:45 RDW 12.8 % (11.0-16.0) 12/27/22 07:45 Plt Count 258 X10*3/uL (160-400) 12/27/22 07:45 MPV 9.0 fL (9.4-12.3) L 12/27/22 07:45 Immature Gran % (Auto) 0.8 % (0.0-0.4) H 12/26/22 09:34 Neut % (Auto) 82.8 % (45-73) H 12/26/22 09:34 Lymph % (Auto) 7.6 % (20-40) L 12/26/22 09:34 [place] % (Auto) 8.0 % (2-11) 12/26/22 09:34 Eos % (Auto) 0.6 % (0-4) 12/26/22 09:34 Baso % (Auto) 0.2 % (0-2) 12/26/22 09:34 Lymph # (Auto) 0.9 X10*3/uL (1.2-4.9) L 12/26/22 09:34 [place] # (Auto) 1.0 X10*3/uL (0.1-1.2) 12/26/22 09:34 Eos # (Auto) 0.1 X10*3/uL (0.0-0.4) 12/26/22 09:34 Baso # (Auto) 0.0 X10*3/uL (0.0-0.2) 12/26/22 09:34 Abs Immat Gran (auto) 0.10 X10*3/uL (0.00-0.03) H 12/26/22 09:34 Absolute Neuts (auto) 10.2 x10*3/uL (2.0-8.3) H 12/26/22 09:34 Absolute Nucleated RBC 0.000 X10*3/uL (0.0-0.012) 12/27/22 07:45 Nucleated RBC % (auto) 0.0 /100WBC (0.0-0.2) 12/27/22 07:45 Sodium 140 mmol/L (135-145) 12/28/22 05:43 Potassium 3.8 mmol/L (3.3-5.1) 12/28/22 05:43 Chloride 109 mmol/L (96-108) H 12/28/22 05:43 Carbon Dioxide 25 mmol/L (22-29) 12/28/22 05:43 Anion Gap 10 (12-20) L 12/28/22 05:43 BUN 3 mg/dL (9-16) L 12/28/22 05:43 Creatinine 0.60 mg/dL (0.5-1.4) 12/28/22 05:43 Estim Creat Clear Calc 72.6 12/28/22 05:43 Estimated GFR > 60 12/28/22 05:43 Random Glucose 92 mg/dL (60-115) 12/28/22 05:43 Calcium 9.0 mg/dL (8.4-10.2) 12/28/22 05:43 Total Bilirubin 1.3 mg/dL (0.0-1.0) H 12/26/22 09:34 AST 54 U/L (5-31) H 12/26/22 09:34 ALT 49 U/L (0-31) H 12/26/22 09:34 Alkaline Phosphatase 156 U/L (39-117) H 12/26/22 09:34 Total Protein 7.1 g/dL (6.5-8.0) 12/26/22 09:34 Albumin 3.9 g/dL (3.5-5.0) 12/26/22 09:34 Lipase 25 U/L (8-78) 12/26/22 09:34 Urine Color Yellow 12/26/22 11:36 Urine Appearance Clear 12/26/22 11:36 Urine pH 7.0 (5.0-9.0) 12/26/22 11:36 Ur Specific [place] >= 1.030 (1.005-1.025) H 12/26/22 11:36 Urine Protein Negative mg/dL (Neg-Trace) 12/26/22 11:36 Urine Glucose (UA) Negative mg/dL (Negative) 12/26/22 11:36 Urine Ketones Negative mg/dL (Negative) 12/26/22 11:36 Urine Blood Negative (Negative) 12/26/22 11:36 Urine Nitrite Negative (Negative) 12/26/22 11:36 Ur Leukocyte Esterase Negative (Negative) 12/26/22 11:36 Impressions Abdomen/Pelvis CT 12/26/22 10:32 IMPRESSION: Sigmoid diverticulitis. Small fluid collections along the left lateral sigmoid colon inseparable from the left adnexa. It is uncertain whether this represents intramural abscesses or small extraluminal abscesses or contained perforations. Largest area measures 2 cm. No evidence of obstruction or free air. Small amount of fluid in the endometrial cavity. This could be better assessed with pelvic ultrasound if clinically indicated/history of vaginal bleeding. Fleischner guidelines were followed. Discharge Plan Discharge Anticipated Discharge Date/Time: 01/01/23 09:52 Patient Disposition: Home, Self-Care Discharge Diagnosis: acute diverticulitis Referrals: Ashley Akins MD [Primary Care Provider] - 1 Week Clayton Guevara MD [Physician] - 2 Weeks Discharge Medications: New amoxicillin-pot clavulanate 875-125 mg tablet 1 tab PO BID Qty: 12 0RF Continued calcium carbonate 500 mg calcium (1,250 mg) Tablet 500 mg PO BID ibuprofen 400 mg Tablet 400 mg PO Q8H PRN (Reason: Pain) amoxicillin-pot clavulanate 875-125 mg tablet 1 tab PO Q12H PreserVision AREDS 2,148 mcg-113 mg-45 mg-17.4mg Tablet 1 tab PO BID Rx Instructions: administer with AM and PM meals estradiol 0.01 % (0.1 mg/gram) cream 1 g vaginal 2XW No Action lorazepam [Ativan] 1 mg tablet 1 mg PO TID PRN (Reason: anxiety) Qty: 20 0RF Discharge Orders: Discharge Order (Routine); Ordered 01/01/23 Ordered By: Clayton Guevara Activity on Discharge: As tolerated Stand Alone Forms: Patient Portal Discharge page Activity Restrictions/Additional Instructions: return to ED if with worsening abdominal pain, high fever, vomitting Care Plan Goals: control of diverticular disease Health Concerns: diverticular disease Plan of Treatment: continue oral antibitiotics Assessment: doing well Discharge Date/Time: 01/01/23 13:27
== END 2023-01-01 13:27 | disposition home or self-care (01) | DRG 392 ==
LOC: HO.ED 11:26 → HO.EDOVER 12:02 → HO.S3 15:45
PROVIDERS: Nurse Practitioner Acute Care; Admitting Provider Surgery; Emergency Provider Emergency Medicine; PCP Internal Medicine; Visit Provider Surgery
DX: K57.20 Diverticulitis of large intestine with perforation and abscess without bleeding (principal); F10.10 Alcohol abuse, uncomplicated; F41.9 Anxiety disorder, unspecified; Z88.2 Allergy status to sulfonamides; Z79.899 Other long term (current) drug therapy
CPT/HCPCS: 36415; 74177; 80048; 80053; 81003; 83690; 85025; 85027; 99285; J1643; J2270; J2543; Q9967

== ENCOUNTER → 2022-12-26 11:41 | Outpatient (BNV) | payer MEDICARE, SELFPAY | PROVIDERS: Admitting Provider Surgery; Emergency Provider Emergency Medicine; PCP Internal Medicine; Visit Provider Surgery | DX: K57.32 Diverticulitis of large intestine without perforation or abscess without bleeding (principal) | CPT/HCPCS: 99231; 99232; 99238; 99284 ==

== ENCOUNTER → 2022-12-26 11:41 | Outpatient (BNV) | payer MEDICARE, SELFPAY | PROVIDERS: Admitting Provider Surgery; Emergency Provider Emergency Medicine; PCP Internal Medicine; Visit Provider Nurse Practitioner Acute Care | DX: K57.80 Diverticulitis of intestine, part unspecified, with perforation and abscess without bleeding (principal) | CPT/HCPCS: 99232 ==

== ENCOUNTER 2023-01-11 14:12 | Outpatient (AMB) | payer MEDICARE, SELFPAY ==
--- NOTE | 2023-01-11 14:18 | MHC.OFFVIS ---
Intake Intake Visit Reasons: Diverticular disease, [facility] [place] Discharge Intake Note: This patient presents for [facility] [place] inpatient follow-up for diverticular disease. Patient c/o; reports no changes or complaints at this time. Call Center Receptionist Required: No Accompanied by: Self / Same As Patient Allergies Sulfa (Sulfonamide Antibiotics) Adverse Reaction (Verified 01/11/23 14:24) Rash Medication List - Last Reconciled 01/11/23 by Clayton Guevara MD amoxicillin-pot clavulanate 875-125 mg 1 tab PO Q12H amoxicillin-pot clavulanate 875-125 mg 1 tab PO BID calcium carbonate 500 mg PO BID estradiol 0.01%(0.1mg/gram) 1 g vaginal 2XW ibuprofen 400 mg PO Q8H PRN lorazepam (Ativan) 1 mg PO BID PRN lorazepam (Ativan) 1 mg PO TID PRN vitamins A,C,D-jngp-jxengo 2,148 mcg-113 mg-45 mg-17.4mg (PreserVision AREDS) 1 tab PO BID HPI Diverticular disease, [facility] [place] Discharge HPI Details 73 year female here for follow-up for diverticulitis. She was admitted to the hospital last December 26 to January 01, 2023 because of acute diverticulitis with what appeared to be an intramural abscess. She was discharge much improved. She currently denies significant GI complaints. She has good oral intake and good bowel movements. She does state that once in a while, she would have some mild lower abdominal pain with bowel movements although this is not nearly as bad as pain from before. [facility] Medical History Daily consumption of alcohol Diverticular disease Surgical History H/O neck surgery History of appendectomy Social History Household Members: Family Housing: House Do you presently have visiting nurse or other home services: No Alcohol intake: current Alcohol intake frequency: 3 or more drinks per day Alcohol type: wine Patient Tobacco Use Status: Never used Tobacco service: No Review of Systems Const Denies chills and Denies fever(s) Card Denies chest pain, Denies dyspnea and Denies dyspnea on exertion Resp Denies cough, Denies dyspnea and Denies dyspnea on exertion GI Denies hematochezia and Denies change in bowel habits Denies hematuria Musc Denies back pain and Denies limited range of motion Neuro Denies focal weakness and Denies convulsions Psych Denies depression and Denies mood swings Physical Exam Const General: comfortable and no acute distress Orientation/consciousness: patient oriented x3 Neck Neck: Yes no lymphadenopathy Resp Auscultation: clear to auscultation bilaterally Cardio Rhythm: regular rhythm GI Palpation (GI): Soft to palpation, nontender and no guarding Neuro General: patient oriented x3 Assessment & Plan Assessment & Plan (1) Diverticular disease: Code(s): K57.90 - Diverticulosis of intestine, part unspecified, without perforation or abscess without bleeding Plan: She had been admitted for acute diverticulitis with what appeared to be an intramural abscess in the sigmoid 3 weeks ago. She currently feels well. She denies any significant abdominal pain. Physical exam is very benign I am going to order a follow-up CT scan because of the intramural abscess on her last admission. I will see her in the office thereafter. Orders: Orders CT abdomen pelvis w IV con Today K57.90 - Diverticulosis of intestine, part unspecified, without perforation or abscess without bleeding Coding Level of Care Code Est Pt Level 3 (40660) Diagnoses Diverticular disease K57.90
== END 2023-01-11 14:31 | disposition home or self-care (01) ==
PROVIDERS: PCP Internal Medicine; Visit Provider Surgery
DX: K57.90 Diverticulosis of intestine, part unspecified, without perforation or abscess without bleeding (principal)
CPT/HCPCS: 99213

== ENCOUNTER → 2023-01-11 14:12 | Outpatient (BNVA) | payer MEDICARE, SELFPAY | PROVIDERS: PCP Internal Medicine; Visit Provider Surgery | DX: K57.90 Diverticulosis of intestine, part unspecified, without perforation or abscess without bleeding (principal) | CPT/HCPCS: 99212 ==

== ENCOUNTER 2023-01-25 15:37 | Outpatient (REF) | payer MEDICARE, SELFPAY ==
[2023-01-25 17:31] LABS: Blood Urea Nitrogen 12 mg/dL (9-16); Estimated Glomerular Filt Rate > 60
== END 2023-01-25 15:38 | disposition home or self-care (01) ==
LOC: HO.LAB 15:37
PROVIDERS: PCP Internal Medicine; Visit Provider Surgery
DX: K57.90 Diverticulosis of intestine, part unspecified, without perforation or abscess without bleeding (principal)
CPT/HCPCS: 36415; 82565; 84520

== ENCOUNTER 2023-02-15 15:10 | Outpatient (REF) | payer MEDICARE, SELFPAY ==
--- NOTE | ~2023-02-15 | CT_ITS ---
EXAMINATION: CT ABDOMEN AND PELVIS WITH CONTRAST CLINICAL INFORMATION: Diverticulitis without perforation. COMPARISON: CT abdomen and pelvis dated 12/26/2022. TECHNIQUE: Multidetector volumetric images were obtained from the superior aspect of the liver through the pubic symphysis following administration 85 mL of Omnipaque 350 intravenous contrast. Sagittal and coronal reformatted images were obtained on the technologist's workstation. Oral contrast: No The examination is somewhat limited by motion artifact. This CT examination was performed using dose optimization techniques as appropriate, variously including the following: *Automated exposure control *Adjustment of mA and/or kV according to patient size (this includes techniques or standardized protocols for targeted exams where dose is matched to indication/reason for exam; i.e. extremities or head) *Use of iterative reconstruction technique DLP: 285 mGy-cm FINDINGS: LUNG BASES: There is mild bibasilar dependent hypoaeration. LIVER, GALLBLADDER, AND BILIARY TREE: The liver is normal in size, shape, and attenuation. No focal hepatic lesion or biliary ductal dilatation is present. The gallbladder is unremarkable with no evidence of radiopaque gallstones, gallbladder wall thickening, or obvious pericholecystic inflammatory changes. PANCREAS: Unremarkable. SPLEEN: Unremarkable. ADRENAL GLANDS: Unremarkable. KIDNEYS AND URETERS: The kidneys are normal in size, shape, and attenuation. No hydronephrosis, hydroureter, or calculi seen. No perinephric stranding. BLADDER: Unremarkable. GASTROINTESTINAL TRACT: Again, there is moderate diverticulosis. There is significant interim improvement in a previously seen sigmoid diverticular abscess. There is a persistent crescentic low-attenuation fluid collection seen in the left adnexal region, possibly involving the left ovary or a resolving abscess cavity (3:57). This measures approximately 3.1 x 1.5 cm. No low attenuation abscess cavity contents are presently noted. There is no free intraperitoneal air or obstruction. ABDOMINAL WALL: No significant hernia is appreciated. LYMPH NODES: Normal. VASCULAR: There is mild aortoiliac atherosclerotic calcification. No abdominal aortic aneurysm or dissection is seen. PELVIC VISCERA: The uterus and adnexa are unremarkable. As above, there is a crescentic low-attenuation fluid collection in the left adnexal region. OSSEOUS STRUCTURES: There is multi-level thoracolumbar degenerative disc disease, spondylosis and facet arthropathy. Degenerative disc disease is particularly pronounced at L3-L4 and L5-S1. No acute or aggressive osseous abnormality is seen. CT/CT abdomen pelvis w IV con IMPRESSION: There is significant interim improvement in sigmoid diverticulitis, with diminished pericolonic diverticular abscess. There is a small residual crescentic low-attenuation fluid collection in the left adnexal region, and a collapsing abscess cavity is seen, versus the left ovary. No obstruction or free intraperitoneal air is seen. Fleischner guidelines were followed.
[2023-02-15] MEDS: iohexoL 350 MG/ML 100 ML INFUS..BTL 85 ML IV (15:50)
== END 2023-02-15 15:11 | disposition home or self-care (01) ==
LOC: HO.CT 15:10
PROVIDERS: Visit Provider Surgery
DX: K57.90 Diverticulosis of intestine, part unspecified, without perforation or abscess without bleeding (principal)
CPT/HCPCS: 74177; Q9967

== ENCOUNTER 2023-02-22 13:33 | Outpatient (AMB) | payer MEDICARE, SELFPAY ==
--- NOTE | 2023-02-22 13:36 | A.OFFVIS_ITS ---
Intake Intake Visit Reasons: Diverticular disease, CT results Intake Note: This patient presents for a follow-up assessment for Ct-Scan results. Patient c/o; reports no changes at this time. Student Accounts Coordinator Required: No Accompanied by: Self / Same As Patient Allergies Sulfa (Sulfonamide Antibiotics) Adverse Reaction (Verified 02/22/23 13:44) Rash Medication List - Last Reconciled 02/22/23 by Clayton Guevara MD amoxicillin-pot clavulanate 875-125 mg 1 tab PO Q12H amoxicillin-pot clavulanate 875-125 mg 1 tab PO BID calcium carbonate 500 mg PO BID estradiol 0.01%(0.1mg/gram) 1 g vaginal 2XW ibuprofen 400 mg PO Q8H PRN lorazepam (Ativan) 1 mg PO BID PRN lorazepam (Ativan) 1 mg PO TID PRN vitamins A,C,J-tbbq-ktbyzc 2,148 mcg-113 mg-45 mg-17.4mg (PreserVision AREDS) 1 tab PO BID HPI Diverticular disease, CT results HPI Details She is here for follow-up for her diverticular disease. I had admitted her last December for acute diverticulitis with what appeared to be an intramural abscess. I had her last month as well and had scheduled her for a follow-up CT scan. She states that she has had no abdominal complaints for about over 1 month now. She denies any abdominal pain. She says had good oral intake. She says that she has good bowel movements although she does state that she has a history of IBS. She denies any fever or chills. PFSH Medical History Diverticular disease Daily consumption of alcohol Surgical History H/O neck surgery History of appendectomy Social History Household Members: Family Housing: House Do you presently have visiting nurse or other home services: No Alcohol intake: current Alcohol intake frequency: 3 or more drinks per day Alcohol type: wine Patient Tobacco Use Status: Never used Tobacco service: No Review of Systems Const Denies chills and Denies fever(s) Card Denies chest pain, Denies dyspnea and Denies dyspnea on exertion Resp Denies cough, Denies dyspnea and Denies dyspnea on exertion GI Denies hematochezia and Denies change in bowel habits Denies hematuria Musc Denies back pain and Denies limited range of motion Neuro Denies focal weakness and Denies convulsions Psych Denies depression and Denies mood swings Physical Exam Const General: comfortable and no acute distress Resp Effort & Inspection: normal respiratory effort GI Other: No palpable masses Palpation (GI): Soft to palpation, not firm and nontender Assessment & Plan Assessment & Plan (1) Diverticular disease: Code(s): K57.90 - Diverticulosis of intestine, part unspecified, without perforation or abscess without bleeding Plan: Her follow-up CT scan shows significant improvement of the intramural abscess in the sigmoid. There is some residual fluid that may represent a previous abscess cavity Clinically, she feels well and seems to be doing very well. She denies any abdominal pain and has not had any episodes for over a month. Furthermore, she has good oral intake. She says she feels well overall She says that this may be the 2nd episode of her being diagnosed to have acute diverticulitis. She says that she remembers being told she had diverticulitis few years ago. She understands that this inflammation and infection the sigmoid may be recurrent. She understands that in recurrent disease or with worsening, surgical resection may be beneficial She is aware of the above but she says she feels great at this time. I told her that I would like to see her again in the office in about 2-3 months to see how she is doing. She says she undergoes Cologuard testing as screening as she says she has a previous history of an incomplete colonoscopy. I reminded her to continue with this screening. Coding Level of Care Code Est Pt Level 4 (87716) Diagnoses Diverticular disease K57.90
== END 2023-02-22 14:18 | disposition home or self-care (01) ==
PROVIDERS: PCP Internal Medicine; Visit Provider Surgery
DX: K57.90 Diverticulosis of intestine, part unspecified, without perforation or abscess without bleeding (principal)
CPT/HCPCS: 99214

== ENCOUNTER → 2023-02-22 13:33 | Outpatient (BNVA) | payer MEDICARE, SELFPAY | PROVIDERS: PCP Internal Medicine; Visit Provider Surgery | DX: K57.90 Diverticulosis of intestine, part unspecified, without perforation or abscess without bleeding (principal) | CPT/HCPCS: 99212 ==

== ENCOUNTER 2023-04-26 10:51 | Outpatient (AMB) | payer MEDICARE, SELFPAY ==
--- NOTE | 2023-04-26 10:53 | A.OFFVIS_ITS ---
Intake Vital Signs 04/26/23 11:02 Height 5 ft 1 in Weight 127 lb 2 oz BMI 24.0 BP 157/72 H Blood Pressure Location Lt brachial Position Sitting Pulse 88 Intake Visit Reasons: Diverticular disease, 2 month follow up Intake Note: Patient is seen in office for 2 months follow up visit, following diverticular disease. Pt c/o: on and off cramps, bloating, diarrhea, denies any nausea, vomit, constipation Personalization Specialist Required: No Accompanied by: Self / Same As Patient Allergies Sulfa (Sulfonamide Antibiotics) Adverse Reaction (Verified 04/26/23 11:00) Rash Medication List - Last Reconciled 04/26/23 by Clayton Guevara MD calcium carbonate 500 mg PO BID estradiol 0.01%(0.1mg/gram) 1 g vaginal 2XW ibuprofen 400 mg PO Q8H PRN lorazepam (Ativan) 1 mg PO BID PRN vitamins A,C,D-uppl-jxsege 2,148 mcg-113 mg-45 mg-17.4mg (PreserVision AREDS) 1 tab PO BID HPI Diverticular disease, 2 month follow up HPI Details She is here for follow-up for her diverticular disease. She was admitted to the hospital for acute diverticulitis with an intramural abscess last December,. She has been improving since then. I had done a CT scan last February, and this showed that the intramural abscess had markedly improved. I had instructed her to see me for follow-up. She says that she has been doing well overall. She admits to periodic short episodes of the left lower quadrant, usually relieved with a bowel movement. She says that she often times strains with bowel movements as well. She has good oral intake. She has had no severe episode of lower quadrant pain. She admits to being paranoid with her periods of pain however which she thinks is more of a noise stands. PFSH Medical History Diverticular disease Daily consumption of alcohol Surgical History H/O neck surgery History of appendectomy Social History Household Members: Family Housing: House Do you presently have visiting nurse or other home services: No Alcohol intake: current Alcohol intake frequency: 3 or more drinks per day Alcohol type: wine Patient Tobacco Use Status: Never used Tobacco service: No Review of Systems Const Denies chills and Denies fever(s) Card Denies chest pain, Denies dyspnea and Denies dyspnea on exertion Resp Denies cough, Denies dyspnea and Denies dyspnea on exertion GI Denies hematochezia and Denies change in bowel habits Denies hematuria Musc Denies back pain and Denies limited range of motion Neuro Denies focal weakness and Denies convulsions Psych Denies depression and Denies mood swings Physical Exam Const General: comfortable and no acute distress Resp Effort & Inspection: normal respiratory effort Cardio Rate: regular rate GI Palpation (GI): Soft to palpation, not firm, nontender and no guarding Assessment & Plan Assessment & Plan (1) Diverticular disease: Code(s): K57.90 - Diverticulosis of intestine, part unspecified, without perforation or abscess without bleeding Plan: She continues to do fairly well. She does admit to occasional episodes of left lower quadrant pain although this is not severe. She admits to getting paranoid with this however I had advised her to start taking Metamucil twice a day. I did explain to her that if she has severe episodes or has fever, she should go back to the emergency room for recurrent diverticulitis She understands the risks of requiring surgery I will see her again in the office in about 2-3 months to see how she is doing. Coding Level of Care Code Est Pt Level 3 (64975) Diagnoses Diverticular disease K57.90
[2023-04-26 11:02] VITALS: BP 157/72; PULSE 88; BMI 24.0
== END 2023-04-26 11:12 | disposition home or self-care (01) ==
PROVIDERS: PCP Internal Medicine; Visit Provider Surgery
DX: K57.90 Diverticulosis of intestine, part unspecified, without perforation or abscess without bleeding (principal)
CPT/HCPCS: 99213

== ENCOUNTER → 2023-04-26 10:51 | Outpatient (BNVA) | payer MEDICARE, SELFPAY | PROVIDERS: PCP Internal Medicine; Visit Provider Surgery | DX: K57.90 Diverticulosis of intestine, part unspecified, without perforation or abscess without bleeding (principal); R10.32 Left lower quadrant pain | CPT/HCPCS: 99212 ==

== ENCOUNTER 2024-01-13 11:18 | Emergency (ER) | payer MEDICARE, SELFPAY ==
--- NOTE | ~2024-01-13 | CT_ITS ---
EXAMINATION: CT ABDOMEN AND PELVIS WITHOUT CONTRAST CLINICAL INFORMATION: Left lower quadrant pain. History of diverticulitis COMPARISON: CT abdomen pelvis February 15, 2023 TECHNIQUE: Multidetector volumetric imaging was performed from the superior aspect of the liver through the pubic symphysis. Sagittal and coronal reformatted images were obtained on the technologist's workstation. This CT examination was performed using dose optimization techniques as appropriate, variously including the following: *Automated exposure control *Adjustment of mA and/or kV according to patient size (this includes techniques or standardized protocols for targeted exams where dose is matched to indication/reason for exam; i.e. extremities or head) *Use of iterative reconstruction technique DLP: 413 mGy-cm FINDINGS: LUNG BASES: The visualized lung bases are unremarkable. LIVER, GALLBLADDER, AND BILIARY TREE: The liver is normal in size, shape, and attenuation. No focal hepatic lesion or biliary ductal dilatation is present. The gallbladder is unremarkable with no evidence of radiopaque gallstones, gallbladder wall thickening, or obvious pericholecystic inflammatory changes. PANCREAS: Unremarkable. SPLEEN: Unremarkable. ADRENAL GLANDS: Unremarkable. KIDNEYS AND URETERS: The kidneys are normal in size, shape, and attenuation. No hydronephrosis, hydroureter, or calculi seen. No perinephric stranding. BLADDER: Unremarkable. GASTROINTESTINAL TRACT: There are diverticula throughout the colon. There is focal thickening of the sigmoid colon suspicious for diverticulitis. Axial image 55/84 series 3. This area there is inseparable from the left adnexa similar density could be related to the ovary. No evidence of abscess. No obstruction. The appendix is nonvisualized. Small bowel loops and stomach are unremarkable. ABDOMINAL WALL: No significant hernia is appreciated. LYMPH NODES: Normal. VASCULAR: Unremarkable. PELVIC VISCERA: Unremarkable. OSSEOUS STRUCTURES: Multilevel degenerative spondylosis spine. Dextroscoliosis thoracolumbar spine. CT/CT abdomen pelvis wo IV con IMPRESSION: Focal thickening of the sigmoid colon suspicious for diverticulitis. Fleischner guidelines were followed.
[2024-01-13 11:46] VITALS: BP 172/71; PULSE 89; RESP 18; TEMP 36.7; O2SAT 100; BMI 24.7
--- NOTE | 2024-01-13 11:48 | ED.ABDPAIN ---
HPI - Abdominal Pain General Chief Complaint: Abdominal Pain Stated Complaint: abd pain Time Seen by Provider: 01/13/24 18:15 History of Present Illness ED Provider: Dr. Stallworth HPI narrative: 73 y/o F patient; PMH diverticulitis; presents from home with report of 3 - 4 days of LLQ abdominal pain. Denies associated nausea/vomiting/diarrhea/fever/chills. Patient states she has a known history of diverticulitis. She states last flare was approx 1 year ago requiring admission due to associated abscess. She states at that time it improved with medical management and she was discharged to home. She notes she cannot have a colonoscopy due to scar tissue. GI: Dr. Guevara Related Data Home Medications ?Medication ?Instructions ?Recorded ?Confirmed estradiol 0.01% (0.1 mg/gram) 1 g vaginal 2XW 03/04/22 04/26/23 vaginal cream calcium carbonate 500 mg PO BID 12/26/22 04/26/23 ibuprofen 400 mg tablet 400 mg PO Q8H PRN Pain 12/26/22 04/26/23 vitamins A,C,U-kdwj-rrlybl 2,148 1 tab PO BID 12/26/22 04/26/23 mcg-113 mg-45 mg-17.4 mg tablet (PreserVision AREDS) Previous Rx's ?Medication ?Instructions ?Recorded lorazepam 1 mg tablet (Ativan) 1 mg PO BID PRN anxiety #10 tabs 01/07/23 amoxicillin 875 mg-potassium 1 tab PO BID 7 days #14 tabs 01/13/24 clavulanate 125 mg tablet Allergies Allergy/AdvReac Type Severity Reaction Status Date / Time Sulfa (Sulfonamide AdvReac Rash Verified 01/13/24 11:50 Antibiotics) Review of Systems Review of Systems Yes all other systems are reviewed and are negative Denies Sensory deficit (Neuro) PMFSH Past Medical History Attestation statement: The following information was validated with the patient. Source: old records reviewed Medical History Diverticular disease Daily consumption of alcohol Surgical History H/O neck surgery History of appendectomy Social History Social History Household Members: Family Housing: House Do you presently have visiting nurse or other home services: No Alcohol intake: current Alcohol intake frequency: 3 or more drinks per day Alcohol type: wine Patient Tobacco Use Status: Never used Tobacco Advance Directives: No Do you have a plan to hurt others: No Plan service: No Physical Exam ED Vital Signs: Vital Signs - 24 hr 01/13/24 11:46 01/13/24 18:31 01/13/24 20:31 Temperature 98.0 F Pulse Rate 89 73 79 Respiratory Rate 18 17 18 Blood Pressure 172/71 H 157/74 H 131/71 Pulse Oximetry 100 98 99 Oxygen Delivery Method Room Air Room Air Room Air BMI result Body Mass Index 24.7 Patient is afebrile and hemodynamically stable. Const General: cooperative Orientation/consciousness: patient oriented x3 HENMT Head: Yes normal to inspection and Yes atraumatic Eyes General: appearance normal, both eyes and all related structures Pupils: Equal, round and reactive pupils present EOM: EOMs intact bilaterally Neck Neck: Yes normal visual inspection, Yes full ROM, Yes supple and No tender Chest Chest palpation & inspection: normal inspection of the chest and normal palpation of entire chest wall Resp Effort & Inspection: normal respiratory effort, able to speak in complete sentences, no cough and no respiratory distress Auscultation: clear to auscultation bilaterally Cardio Rate: regular rate Rhythm: regular rhythm Peripheral pulses: Peripheral pulses 2+ throughout GI Other: Lower quadrant abdominal pain Inspection: Yes normal to inspection, No Abdominal wall edema and No distended Palpation (GI): Soft to palpation, not firm, Tenderness to palpation present (GI), no guarding and not rigid Auscultation: normal bowel sounds Back/Spine/Pelvis Back: No back tenderness Neuro General: patient oriented x3 Cranial nerves: Yes Equal, round and reactive pupils present Motor exam (neuro): 5/5 motor strength present throughout Sensory Exam: No Sensory deficit (Neuro) Course Course Course Narrative: This is a Rapid Medical Examination (RME) performed by Fidel Zhao PA-C in triage. Full HPI, ROS, assessment and treatment plan per primary provider in the Main ED. 73 yo female hx of diverticulosis and diverticulitis w/ abscess not requiring surgical intervention here for eval of LLQ pain x3-4 days. denies N/V/D, fever, chills, dysuria, hematuria, flank pain. + TTP of LLQ. no rebound/ guarding. Plan: labs, UA, will need line in main ED for CT scan Reevaluation(s) Reevaluation #1: Patient is afebrile and hemodynamically stable. Reviewed triage work up. Triage PA had ordered CT Abdomen/Pelvis WO IV Contrast prior to this physician's examination of patient. Laboratory labs with mild leukocytosis 11.9. Providing 1L IVF. CT Abdomen/Pelvis with evidence of sigmoid diverticulitis. Patient is tolerating PO. Will start on Augmentin, providing first dose in the ED. Plan: Discharge to home with PCP and GI follow up Return precautions given Medical Decision Making Lab Data 01/13/24 12:09 01/13/24 12:09 Labs: Lab Results 01/13/24 01/13/24 Range/Units 12:09 12:43 WBC 11.9 H (4.8-10.8) X10*3/uL RBC 3.80 L (4.20-5.50) X10*6/uL Hgb 13.0 (12.0-16.0) g/dl Hct 37.8 (37.0-47.0) % MCV 99.5 H (80.0-98.0) fL MCH 34.2 H (27.0-33.0) pg MCHC 34.4 (31.0-35.0) g/dl RDW 13.5 (11.0-16.0) % Plt Count 235 (160-400) X10*3/uL MPV 8.7 L (9.4-12.3) fL Immature Gran % (Auto) 0.5 H (0.0-0.4) % Neut % (Auto) 75.6 H (45-73) % Lymph % (Auto) 14.3 L (20-40) % [place] % (Auto) 8.7 (2-11) % Eos % (Auto) 0.6 (0-4) % Baso % (Auto) 0.3 (0-2) % Lymph # (Auto) 1.7 (1.2-4.9) X10*3/uL [place] # (Auto) 1.0 (0.1-1.2) X10*3/uL Eos # (Auto) 0.1 (0.0-0.4) X10*3/uL Baso # (Auto) 0.0 (0.0-0.2) X10*3/uL Abs Immat Gran (auto) 0.06 H (0.00-0.03) X10*3/uL Absolute Neuts (auto) 9.0 H (2.0-8.3) x10*3/uL Absolute Nucleated RBC 0.000 (0.0-0.012) X10*3/uL Nucleated RBC % (auto) 0.0 (0.0-0.2) /100WBC Sodium 133 L (135-145) mmol/L Potassium 5.3 H (3.3-5.1) mmol/L Chloride 101 (96-108) mmol/L Carbon Dioxide 26 (22-29) mmol/L Anion Gap 11 L (12-20) BUN 10 (9-16) mg/dL Creatinine 0.74 (0.5-1.4) mg/dL Estim Creat Clear Calc 56.9 Estimated GFR > 60 Random Glucose 108 (60-115) mg/dL Calcium 10.8 H D (8.4-10.2) mg/dL Magnesium 1.9 (1.6-2.6) mg/dL Total Bilirubin 1.0 (0.0-1.0) mg/dL AST 25 (5-31) U/L ALT 20 (0-31) U/L Alkaline Phosphatase 79 (39-117) U/L Total Protein 7.3 (6.5-8.0) g/dL Albumin 4.2 (3.5-5.0) g/dL Lipase 41 (8-78) U/L Urine Color Yellow Urine Appearance Clear Urine pH 6.0 (5.0-9.0) Ur Specific [place] 1.015 (1.005-1.025) Urine Protein Negative (Neg-Trace) mg/dL Urine Glucose (UA) Negative (Negative) mg/dL Urine Ketones Negative (Negative) mg/dL Urine Blood Negative (Negative) Urine Nitrite Negative (Negative) Ur Leukocyte Esterase Trace H (Negative) Urine RBC 0-2 (0-2) /HPF Urine WBC 0-5 (0-5) /HPF Ur Squamous Epith Cells 6-10 (0-2) /HPF Urine Bacteria 1+ (None Seen) Hyaline Casts 0-2 (0-2) /LPF Medications Administered Discontinued Medications Generic Name Dose Route Start Last Admin Trade Name Freq PRN Reason Stop Dose Admin Sodium Chloride 1,000 mls @ 999 mls/hr 01/13/24 18:30 01/13/24 20:35 Ns IV 01/13/24 19:30 Infused .Q1H1M [facility] Infusion Discharge Plan Discharge Clinical Impression: Diverticulitis Patient Disposition: Home, Self-Care Instructions: Diverticulitis (ED), Diverticulitis Diet (ED) Additional Instructions: As we discussed, you were seen for abdominal pain. Your CT scan showed diverticulitis. Your labs were otherwise reassuring. Since your pain is controllable with tylenol/ibuprofen, and there is no evidence of perforation or abscess, you are safe to go home on an oral antibiotic. Please continue to follow the diverticulitis diet. Follow up with your PCP and GI within the next 2 days for re-evaluation. Return to the emergency department for: Worsening abdominal pain Inability to eat or drink Prescriptions: New amoxicillin-pot clavulanate 875-125 mg tablet 1 tab PO BID 7 Days Qty: 14 0RF No Action lorazepam [Ativan] 1 mg tablet 1 mg PO BID PRN (Reason: anxiety) Qty: 10 0RF calcium carbonate 500 mg calcium (1,250 mg) Tablet 500 mg PO BID ibuprofen 400 mg Tablet 400 mg PO Q8H PRN (Reason: Pain) PreserVision AREDS 2,148 mcg-113 mg-45 mg-17.4mg Tablet 1 tab PO BID Rx Instructions: administer with AM and PM meals estradiol 0.01 % (0.1 mg/gram) cream 1 g vaginal 2XW Print Language: Yi
[2024-01-13 12:14] LABS: Basophils Percent Auto 0.3 % (0-2); Eosinophils Absolute Auto 0.1 X10*3/uL (0.0-0.4); Eosinophils Percent Auto 0.6 % (0-4); Hematocrit 37.8 % (37.0-47.0); Imm Gran Abs Auto 0.06 X10*3/uL (0.00-0.03); Imm Gran Pct Auto 0.5 % (0.0-0.4); Lymphocytes Absolute Auto 1.7 X10*3/uL (1.2-4.9); Lymphocytes Percent Auto 14.3 % (20-40); MANUAL DIFF FLAG NO; Mean Corpuscular HGB Conc 34.4 g/dl (31.0-35.0); Mean Corpuscular Hemoglobin 34.2 pg (27.0-33.0); Mean Corpuscular Volume 99.5 fL (80.0-98.0); Mean Platelet Volume 8.7 fL (9.4-12.3); Monocytes Percent Auto 8.7 % (2-11); Neutrophils Percent Auto 75.6 % (45-73); Platelet Count 235 X10*3/uL (160-400); Red Cell Distribution Width 13.5 % (11.0-16.0); White Blood Count 11.9 X10*3/uL (4.8-10.8)
[2024-01-13 12:29] LABS: Alanine Aminotransferase 20 U/L (0-31); Albumin Level 4.2 g/dL (3.5-5.0); Alkaline Phosphatase 79 U/L (39-117); Anion Gap 11 (12-20); Aspartate Amino Transferase 25 U/L (5-31); Blood Urea Nitrogen 10 mg/dL (9-16); Calcium 10.8 mg/dL (8.4-10.2); Carbon Dioxide 26 mmol/L (22-29); Chloride 101 mmol/L (96-108); Creatinine Clr Calc Pharmacy 56.9; Estimated Glomerular Filt Rate > 60; Glucose Random 108 mg/dL (60-115); Lipase 41 U/L (8-78); Magnesium 1.9 mg/dL (1.6-2.6); Potassium 5.3 mmol/L (3.3-5.1); Sodium 133 mmol/L (135-145); Total Protein 7.3 g/dL (6.5-8.0)
[2024-01-13 12:59] LABS: Appearance Urine Clear; Color Urine Yellow; Glucose Urine UA Negative (Negative); Leukocyte Esterase Urine Trace (Negative); Nitrite Urine Negative (Negative); Specific Gravity - Urine 1.015 (1.005-1.025); UMIC TRIGGER UACC YES; Urine Blood Negative (Negative); Urine Ketones Negative (Negative); Urine Protein Negative (Neg-Trace)
[2024-01-13 13:11] LABS: Bacteria Urine 1+ (None Seen); Hyaline Casts Urine 0-2 /LPF (0-2); RBC Urine 0-2 /HPF (0-2); WBC Urine 0-5 /HPF (0-5)
[2024-01-13 18:31] VITALS: BP 157/74; PULSE 73; RESP 17; O2SAT 98
[2024-01-13] MEDS: 0.9 % Sodium Chloride 1,000 ML 999 ML IV (18:53)
[2024-01-13 20:31] VITALS: BP 131/71; PULSE 79; RESP 18; O2SAT 99
[2024-01-13] MEDS: Amoxicillin/Potassium Clav 875 MG TABLET PO (21:29)
[2024-01-13 21:33] VITALS: BP 131/71; PULSE 79; RESP 18; TEMP 36.8; O2SAT 99
== END 2024-01-13 21:34 | disposition home or self-care (01) ==
PROVIDERS: Physician Assistant Medical; Emergency Provider Emergency Medicine; PCP Internal Medicine
DX: K57.32 Diverticulitis of large intestine without perforation or abscess without bleeding (principal); R10.32 Left lower quadrant pain
CPT/HCPCS: 36415; 74176; 80053; 81001; 83690; 83735; 85025; 99283

== ENCOUNTER 2024-01-24 15:18 | Outpatient (AMB) | payer MEDICARE, SELFPAY ==
--- NOTE | 2024-01-24 15:31 | MHC.OFFVIS ---
Vital Signs 01/24/24 15:32 Height 5 ft 1 in Weight 130 lb 15.273 oz BMI 24.7 Intake Visit Reasons: diverticulitis Intake Note: This patient presents for [facility] [place] emergency department follow-up for diverticulitis. Pt c/o; reports she is feeling well. 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 I had admitted her to the hospital last December 2022 for acute diverticulitis with an intramural abscess. She had been doing well after discharge She went to the ER last 01/13/2024 because of an episode of vague lower abdominal pain. She had a CAT scan done showing a focal thickening of the sigmoid colon with poor planes between this and the adjacent adnexa. She did not have any fever. She was given a course of oral antibiotics from the ER She says she feels well overall. She describes some mild occasional pains in the area. [facility] Medical History Diverticular disease Daily consumption of alcohol Surgical History H/O neck surgery History of appendectomy Social History Household Members: Family Housing: House Do you presently have visiting nurse or other home services: No Alcohol intake: current Alcohol intake frequency: 3 or more drinks per day Alcohol type: wine Patient Tobacco Use Status: Never used Tobacco service: No Review of Systems Const Denies chills and Denies fever(s) Card Denies chest pain, Denies dyspnea and Denies dyspnea on exertion Resp Denies cough, Denies dyspnea and Denies dyspnea on exertion GI Denies hematochezia and Denies change in bowel habits Denies hematuria Musc Denies back pain and Denies limited range of motion Neuro Denies focal weakness and Denies convulsions Psych Denies depression and Denies mood swings Physical Exam Vital Signs: BMI result Body Mass Index 24.7 Const General: comfortable and no acute distress Orientation/consciousness: patient oriented x3 Neck Neck: Yes no lymphadenopathy Resp Auscultation: clear to auscultation bilaterally Cardio Rhythm: regular rhythm GI Palpation (GI): Soft to palpation, nontender and no guarding Neuro General: patient oriented x3 Assessment & Plan Assessment & Plan (1) Diverticular disease: Code(s): K57.90 - Diverticulosis of intestine, part unspecified, without perforation or abscess without bleeding Category: Medical Plan: She had acute diverticulitis last year along with an intramural abscess. She had been doing well until 2 weeks ago when she went to the ER for vague lower abdominal pain. She had a CAT scan showing what appeared to be focal thickening of the distal sigmoid with this area being adjacent and inseparable to the left adnexa. She was treated for diverticulitis with oral antibiotics She says she feels well right now. She does not have any significant tenderness I reviewed with her the option of proceeding with sigmoid resection for diverticular disease. I explained the technique of hand assisted laparoscopic sigmoid resection with possible stoma. I reviewed the risks, benefits, and alternatives She says she feels well at this time. She does not seem to be mentally ready for sigmoid resection. I did tell her to come back to the office if she wants to discuss this. I had advised her to continue taking fiber supplements with Metamucil. Coding Level of Care Code Est Pt Level 3 (12043) Diagnoses Diverticular disease K57.90
[2024-01-24 15:32] VITALS: BMI 24.7
== END 2024-01-24 16:01 | disposition home or self-care (01) ==
PROVIDERS: PCP Internal Medicine; Visit Provider Surgery
DX: K57.90 Diverticulosis of intestine, part unspecified, without perforation or abscess without bleeding (principal)
CPT/HCPCS: 99214

== ENCOUNTER → 2024-01-24 15:18 | Outpatient (BNVA) | payer MEDICARE, SELFPAY | PROVIDERS: PCP Internal Medicine; Visit Provider Surgery | DX: K57.90 Diverticulosis of intestine, part unspecified, without perforation or abscess without bleeding (principal) | CPT/HCPCS: 99212 ==